=== PATIENT | female | born 1945 | race Native Hawaiian/Other Pacific Islander ===

== ENCOUNTER 2017-05-28 11:33 | Day surgery (SDC) | payer MEDICARE, MEDICAID ==
[~2017-05-28 11:33] MED LIST: CHONDR SU A NA/HYALUR INTRAOC KIT (SURGICARE) ONE; EPINEPHRINE INJ/PF 1 MG/1 ML AMPULE ONE; KETOROLAC TROMETHAMINE 0.45% 4 DROP/0.4 ML DROPERETTE OD PRN; LIDOCAINE 1% INJ-PF (10 MG/ML) 30 ML SDV ONE
[2017-05-28] MEDS: CYCLOPENTOLATE 0.2%/PHENYLEPHRINE 1% OPH SOLN 2 ML OD PRN ×3 (11:47→12:23)
[2017-05-28] MEDS: TROPICAMIDE 1% OPH SOLN 3 ML OD PRN ×3 (11:48→12:24)
[2017-05-28] MEDS: BESIFLOXACIN HCL 0.6% OPH SUSP 5 ML BOTTLE OD PRN ×3 (11:49→12:58)
[2017-05-28] MEDS: TETRACAINE HCL 0.5% OPH SOLN 2 ML OD PRN ×3 (11:51→12:26)
--- NOTE | 2017-05-28 20:04 | [facility] OPERATIVE REPORT E ---
[facility] Operative Report NAME: RACHEL AMAYA AGE: 71Y DATE OF SURGERY: 05/28/2017 ROOM: PREOPERATIVE DIAGNOSIS: CATARACT, RIGHT EYE. POSTOPERATIVE DIAGNOSIS: CATARACT, RIGHT EYE. OPERATION: Cataract extraction with intraocular lens implant of the right eye. SURGEON: TATO GONZALES M.D. ANESTHESIA: Topical. PROCEDURE: After obtaining appropriate consent, the patient's right eye was prepped and draped in sterile fashion as well as the surgeon in a sterile manner and cataract surgery was started. First a paracentesis blade was used to make a small side-port incision. Viscoelastic was used to inflate the anterior chamber. Next a 2.4 mm incision was made with the paracentesis blade. A continuous capsulorrhexis incision was made using a cystotome and Utrata forceps. Following this hydrodissection was carried out to make the lens fully loose and mobile and it was rotated 90 degrees. Following this, a yiuffx-pzk-jirllsk technique was used to phacoemulsify the lens with a CDE of 15.69. The remaining cortex was removed with irrigation/aspiration. Provisc was instilled into the capsular bag to inflate the bag. A SN60WF, 17.5 diopter lens was placed. The remaining viscoelastic material was removed with irrigation/aspiration. Following this, a 10-0 nylon suture was used to close the incision and it was found to be watertight. Vigamox was instilled in the eye and a protective shield was placed over the eye. The patient returned to the postoperative recovery in stable condition. DICTATING PHYSICIAN: TATO GONZALES M.D. [id number] PHY#: [id number] 1947 ID: [id number] JOB#: [id number] ACCT: [id number] cc:TATO GONZALES M.D. >
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
== END 2017-05-28 13:45 | disposition home or self-care (01) ==
LOC: SC 11:33
PROVIDERS: ATTEND Internal Medicine
PROC: 08RJ3JZ Replacement of Right Lens with Synthetic Substitute, Percutaneous Approach (ICD-10-PCS; principal; 2017-05-28 13:00)
DX: H25.89 Other age-related cataract (principal); I10 Essential (primary) hypertension; Z96.1 Presence of intraocular lens; H04.123 Dry eye syndrome of bilateral lacrimal glands; Z79.899 Other long term (current) drug therapy; Z91.040 Latex allergy status
CPT/HCPCS: 66984; V2632; J3490 ×2; A9270; J0171; 142

== ENCOUNTER 2020-03-05 14:21 | Emergency (ER) | payer MEDICAID, MEDICARE ==
[2020-03-05] MEDS ORDERED: ACETAMINOPHEN 325 MG TABLET PO ONE (14:35)
--- NOTE | 2020-03-05 14:35 | ER Document Report ---
ED General - General Chief Complaint: Fall Injury Stated Complaint: FALL/RIB PAIN Time Seen by Provider: 03/05/20 14:29 Primary Care Provider: STEFAN JORDAN MD [Primary Care Provider] - Follow up tomorrow KEVIN HERNADEZ MD [ACTIVE STAFF] - Follow up tomorrow (FOR GI FOLLOW UP) TRAVEL OUTSIDE OF THE [place] IN LAST 30 DAYS: No - HPI Notes: 74-year-old female to the emergency department with complaints of a fall that occurred today in her kitchen with low back pain and right-sided rib pain. She states that she slipped in her kitchen when she is moving around. She denies any loss of consciousness or hitting her head. She denies any nausea, vomiting, diarrhea. She states it hurts mainly across the upper right mid and lower back. Denies any bladder or bowel incontinence or saddle paresthesia. She denies any radiculopathy. - Related Data Allergies/Adverse Reactions: latex Allergy (Severe, Verified 05/18/17 10:57) Eczematous dermatitis Latex, Natural Rubber Allergy (Intermediate, Verified 05/18/17 10:57) Eczematous dermatitis Past Medical History - Social History Smoking Status: Never Smoker Frequency of alcohol use: None Drug Abuse: None Family History: Reviewed & Not Pertinent - Past Medical History Cardiac Medical History: Reports: Hx Hypertension Denies: Hx Heart Attack Pulmonary Medical History: Denies: Hx Asthma Neurological Medical History: Denies: Hx Cerebrovascular Accident, Hx Seizures GI Medical History: Denies: Hx Hepatitis, Hx Hiatal Hernia, Hx Ulcer Infectious Medical History: Denies: Hx Hepatitis Past Surgical History: Denies: Hx Hysterectomy, Hx Mastectomy, Hx Open Heart Surgery, Hx Pacemaker Physical Exam - Vital signs Vitals: Temp Pulse Resp BP Pulse Ox 98.8 F 73 20 165/84 H 98 03/05/20 14:28 03/05/20 14:28 03/05/20 14:28 03/05/20 14:28 03/05/20 14:28 Interpretation: Normal - General General appearance: Appears well, Alert In distress: None - HEENT Head: Normocephalic, Atraumatic Eyes: Normal Pupils: PERRL Neck: Normal, Supple - Respiratory Respiratory status: No respiratory distress Chest status: Nontender Breath sounds: Normal Chest palpation: Normal - Cardiovascular Rhythm: Regular Heart sounds: Normal auscultation Murmur: No - Abdominal Inspection: Normal Distension: No distension. No: Distended, Tympanitic, Fluid wave, Distended bladder Bowel sounds: Normal Tenderness: Tender - mild discomfort to the RUQ with no henderson's sign. Mild TTP over the right lower ribs.. No: McBurney's point, Henderson's sign Organomegaly: No organomegaly - Back Back: Normal, Tender - mild TTP over the lumbar midline spine. no step off or deformity. Patient ambulates with ease. no CVA tenderness. no TTP over the cervical and thoracic midline spine. - Neurological Neuro grossly intact: Yes Cognition: Normal Orientation: AAOx4 Gonzales Coma Scale Eye Opening: Spontaneous Gonzales Coma Scale Verbal: Oriented Marisol Coma Scale Motor: Obeys Commands Gonzales Coma Scale Total: 15 Speech: Normal Motor strength normal: LUE, RUE, LLE, RLE Sensory: Normal - Psychological Associated symptoms: Normal affect, Normal mood - Skin Skin Temperature: Warm Skin Moisture: Dry Skin Color: Normal Course - Re-evaluation Re-evalutation: 03/05/20 15:46 Noted x-rays with no acute fractures. Noted degenerative disc disease. Was reviewing this with her the patient and her friend who is with her. Her friend also reports that the patient has been complaining of off and on abdominal pain for the past 3 days. No nausea or vomiting. It is upper nature. She has no tenderness to palpation over the upper abdomen. Will obtain labs and a urinalysis to evaluate further. 03/05/20 16:59 Noted labs with concerning elevated liver enzymes, elevated bilirubin, will send for US of gallbladder. 03/05/20 20:54 Noted ultrasound result for cholelithiasis without any common bile duct dilation, pericholecystic fluid, gallbladder wall thickening, negative Henderson sign. Even in the setting of ultrasound reading her labs are concerning. Discussed the patient with my attending Dr. robertson and he suggested call surgeon buttonhole facer. I have gone over these results with the patient and she is fairly adamant that she does not want to stay for further evaluation and adm ittance. Spoke with Dr. Garcia, surgeon buttonhole facer. He is concerned about the patient's bilirubin in particular. He feels like she needs GI as well as an MRCP and possibly an ERCP we went over liver enzyme results as well as ultrasound results. He is pretty adamant that patient should have admission and further evaluation for GI. Went back and spoke with the patient and her familyher daughter and son were on the phonewe went over the situation at length. I explained to them the ultrasound results as well as the lab work again and advised that the patient would be best suited for admission but given that we do not have GI specialty on-call that she would need to be transferred. They requested that I check with [facility] or [place] to see if they have GI specialty. They do not want to be transferred to [facility]. Spoke with the transfer centers of both [facility] and [facility]. They do have GI specialist but do not have the capability for ERCP/MRCP. I went back and spoke with the patient and her family again. I offered them for me to call in transfer to [facility] once more. They declined her transfer because they do not want her to go to [place] or [place]. I advised that I cannot force the patient to be admitted or transferred but that not getting further care and management through admission could lead to worsening symptoms such as fever, worsening pain, worsening bilirubin elevation, cholecystitis, sepsis, choledocholithiasis, ascending cholangitis, hepatic encephalopathy, altered mental status, , prolonged hospitalization. The family and the patient still refused admission despite these risks reviewed with them. I spoke with my ER attending Dr. robertson once more. We will cover the patient with antibiotics and the patient would like to follow-up with her family with her primary care physician tomorrow and they would like information for outpatient GI. I will give Dr. Hernadez's information. I have advised the family and the patient that they may return at any time in the next 8 to 24 hours or even beyond that if the symptoms get worse. They voiced understanding and agree with the plan. We will have the patient sign AGAINST MEDICAL ADVICE form and let her go home. - Vital Signs Vital signs: Temp Pulse Resp BP Pulse Ox 98.2 F 63 16 173/91 H 100 03/05/20 20:52 03/05/20 20:52 03/05/20 20:52 03/05/20 20:52 03/05/20 20:52 - Laboratory Result Diagrams: 03/05/20 16:06 03/05/20 16:06 Laboratory results interpreted by me: 03/05/20 03/05/20 16:06 16:06 RBC 3.64 L Hct 35.2 L MCH 34.3 H Potassium 3.5 L Glucose 123 H Total Bilirubin 2.4 H Direct Bilirubin 1.2 H AST 91 H ALT 58 H Alkaline Phosphatase 323 H Total Protein 9.1 H - Diagnostic Test Radiology reviewed: Image reviewed, Reports reviewed Discharge - Discharge Clinical Impression: Rib pain on right side, Degenerative disc disease, lumbar, Right upper quadrant abdominal pain, Elevated liver enzymes, Total bilirubin, elevated Fall Qualifiers: Encounter type: initial encounter Qualified Code(s): W19.XXXA - Unspecified fall, initial encounter Low back strain Qualifiers: Encounter type: initial encounter Qualified Code(s): S39.012A - Strain of muscle, fascia and tendon of lower back, initial encounter Cholelithiasis Qualifiers: Cholelithiasis location: gallbladder Cholecystitis presence: without cholecystitis Biliary obstruction: without biliary obstruction Qualified Code(s ): K80.20 - Calculus of gallbladder without cholecystitis without obstruction Condition: Stable Disposition: AGAINST MEDICAL ADVICE Instructions: Low Back Pain ([facility]), Rib Contusion ([facility]) Additional Instructions: Take medicine as prescribed. Take antibiotics. Follow-up with GI and primary care physician without fail tomorrow. You may return at any time in the next 24 hours if your symptoms get worse to include fever, worsening abdominal pain, nausea vomiting that is intractable. Offered admission and transfer for further evaluation and management of your elevated liver enzymes, cholelithiasis, elevated bilirubin. You have elected not to utilize this option. This could ge t worse and end up with prolonged hospitalization, sepsis, infected gallbladder, hepatic failure, . We have discussed this with your family as well and you and your family have elected to try to follow-up outpatient. You may return at any time for further management. Prescriptions: Ciprofloxacin HCl [Cipro 500 mg Tablet] 500 mg PO BID #20 tablet Metronidazole [Flagyl 500 mg Tablet] 500 mg PO TID #30 tablet Methocarbamol [Robaxin 500 mg Tablet] 500 mg PO QID PRN #20 tablet PRN Reason: Ondansetron [Zofran Odt 4 mg Tablet] 1 - 2 tab PO Q4H PRN #15 tab.rapdis PRN Reason: For Nausea/Vomiting Referrals: STEFAN JORDAN MD [Primary Care Provider] - Follow up tomorrow KEVIN HERNADEZ MD [ACTIVE STAFF] - Follow up tomorrow (FOR GI FOLLOW UP)
--- NOTE | 2020-03-05 15:20 | RADIOLOGY REPORT (SQ) ---
EXAM DESCRIPTION: CHEST 2 VIEWS IMAGES COMPLETED DATE/TIME: 03/05/2020 3:06 pm REASON FOR STUDY: right rib pain, fall COMPARISON: None. EXAM PARAMETERS: NUMBER OF VIEWS: two views TECHNIQUE: Digital Frontal and Lateral radiographic views of the chest acquired. RADIATION DOSE: NA LIMITATIONS: none FINDINGS: LUNGS AND PLEURA: No opacities, masses or pneumothorax. No pleural effusion. MEDIASTINUM AND HILAR STRUCTURES: No masses or contour abnormalities. HEART AND VASCULAR STRUCTURES: Heart normal size. No evidence for failure. BONES: No displaced rib fractures are noted. HARDWARE: None in the chest. OTHER: No other significant finding. IMPRESSION: NO ACUTE RADIOGRAPHIC FINDING IN THE CHEST. TECHNICAL DOCUMENTATION: JOB ID: [id number] 2010 [employer]- All Rights Reserved Reading location - IP/workstation name: [email or web address]
--- NOTE | 2020-03-05 15:21 | RADIOLOGY REPORT (SQ) ---
EXAM DESCRIPTION: L SPINE WHOLE IMAGES COMPLETED DATE/TIME: 03/05/2020 3:06 pm REASON FOR STUDY: fall low back pain COMPARISON: None. NUMBER OF VIEWS: Five views including obliques. TECHNIQUE: AP, lateral, oblique, and sacral radiographic images acquired of the lumbar spine. LIMITATIONS: None. FINDINGS: MINERALIZATION: Normal. SEGMENTATION: Normal. No transitional anatomy. ALIGNMENT: Grade 1 anterolisthesis of L4 on L5. VERTEBRAE: Maintained height. No fracture or worrisome bone lesion. DISCS: Disc space narrowing at L4-L5 and L5-S1. POSTERIOR ELEMENTS: The set arthropathy at L4-L5 and L5-S1. HARDWARE: None in the spine. PARASPINAL SOFT TISSUES: Normal. PELVIS: Intact as visualized. No fractures or worrisome bone lesions. SI joints intact. OTHER: No other significant finding. IMPRESSION: Disc degenerative disease at L4-L5 and L5-S1 with grade 1 anterolisthesis of L4 on L5. No acute findings. TECHNICAL DOCUMENTATION: JOB ID: [id number] 2010 [facility]- All Rights Reserved Reading location - IP/workstation name: [email or web address]
[2020-03-05 16:21] LABS: ABSOLUTE EOSINOPHILS # (AUTO) 0.2 10^3/uL (0.0-0.6); ABSOLUTE LYMPHOCYTES (AUTO) 1.6 10^3/uL (0.5-4.7); ABSOLUTE MONOCYTES (AUTO) 0.4 10^3/uL (0.1-1.4); ABSOLUTE NEUT (AUTO) 2.4 10^3/uL (1.7-8.2); APPEARANCE,URINE CLEAR; BILIRUBIN,URINE NEGATIVE (NEGATIVE); COLOR,URINE YELLOW; EOSINOPHILS % (AUTO) 3.6 % (0-6); GLUCOSE, URINE NEGATIVE (NEGATIVE); HEMATOCRIT 35.2 % (36.0-47.0); HEMOGLOBIN 12.5 g/dL (12.0-15.5); KETONES,URINE NEGATIVE (NEGATIVE); LEUKOCYTE ESTERASE,URINE NEGATIVE (NEGATIVE); LYMPHOCYTES % (AUTO) 34.7 % (13-45); MEAN CORPUSCULAR HEMOGLOBIN 34.3 pg (27.0-33.4); MEAN CORPUSCULAR HGB CONC 35.5 g/dL (32.0-36.0); MEAN CORPUSCULAR VOLUME 97 fl (80-97); MONOCYTES % (AUTO) 9.5 % (3-13); NITRITE,URINE NEGATIVE (NEGATIVE); PLATELET COUNT 227 10^3/uL (150-450); PROTEIN,URINE NEGATIVE (NEGATIVE); RED BLOOD COUNT 3.64 10^6/uL (3.72-5.28); RED CELL DISTRIBUTION WIDTH 13.1 % (11.5-14.0); SEGMENTED NEUTROPHILS % (AUTO) 51.2 % (42-78); TOTAL CELLS COUNTED % (AUTO) 100 %; URINE SPECIFIC GRAVITY 1.003; UROBILINOGEN,URINE NEGATIVE mg/dL (<2.0); WHITE BLOOD COUNT 4.7 10^3/uL (4.0-10.5)
[2020-03-05 16:47] LABS: ALKALINE PHOSPHATASE 323 U/L (38-126); ANION GAP 9 (5-19); ASPARTATE AMINO TRANSFERASE 91 U/L (14-36); BILIRUBIN,DIRECT 1.2 mg/dL (0.0-0.4); BILIRUBIN,TOTAL 2.4 mg/dL (0.2-1.3); BLOOD UREA NITROGEN 9 mg/dL (7-20); CALCIUM 9.3 mg/dL (8.4-10.2); CARBON DIOXIDE 29 mmol/L (22-30); CHLORIDE 102 mmol/L (98-107); GLUCOSE 123 mg/dL (75-110); POTASSIUM 3.5 mmol/L (3.6-5.0); TOTAL PROTEIN 9.1 g/dL (6.3-8.2)
--- NOTE | 2020-03-05 19:31 | RADIOLOGY REPORT (SQ) ---
EXAM DESCRIPTION: U/S ABDOMEN LIMITED W/O DOP IMAGES COMPLETED DATE/TIME: 03/05/2020 7:21 pm REASON FOR STUDY: abnormal liver enzymes COMPARISON: None. TECHNIQUE: Dynamic and static grayscale images acquired of the abdomen and recorded on PACS. Additio rosibel selected color Doppler and spectral images recorded. LIMITATIONS: None. FINDINGS: PANCREAS: No masses. Visualized pancreatic duct normal caliber. LIVER: Coarsened, heterogeneous echotexture without focal mass lesion. LIVER VASCULATURE: Normal directional flow of the main portal vein and hepatic veins. GALLBLADDER: Gallstone(s). No pericholecystic fluid. No wall thickening. ULTRASOUND-DETECTED DIGGS'S SIGN: Negative. INTRAHEPATIC DUCTS AND COMMON DUCT: CBD and intrahepatic ducts normal caliber. No filling defects. INFERIOR VENA CAVA: Normal flow. AORTA: No aneurysm. RIGHT KIDNEY: Normal size. Normal echogenicity. No solid or suspicious masses. No hydronephrosis. No calcifications. PERITONEAL AND RIGHT PLEURAL SPACE: No ascites or effusions. OTHER: No other significant findings. IMPRESSION: Cholelithiasis without evidence of cholecystitis. Coarsened, heterogeneous echotexture of the liver may represent an element of geographic hepatic steatosis. TECHNICAL DOCUMENTATION: JOB ID: [id number] 2010 [employer]- All Rights Reserved Reading location - IP/workstation name: [email or web address]
[2020-03-05 20:53] VITALS: BP 173/91
== END 2020-03-05 20:57 | disposition left against medical advice (07) ==
LOC: ER 14:21
DX: S39.012A Strain of muscle, fascia and tendon of lower back, initial encounter (principal); K80.20 Calculus of gallbladder without cholecystitis without obstruction; R07.81 Pleurodynia; R10.11 Right upper quadrant pain; M51.36 Other intervertebral disc degeneration, lumbar region; R74.8 Abnormal levels of other serum enzymes; E80.6 Other disorders of bilirubin metabolism; W01.0XXA Fall on same level from slipping, tripping and stumbling without subsequent striking against object, initial encounter; Y92.000 Kitchen of unspecified non-institutional (private) residence as the place of occurrence of the external cause; I10 Essential (primary) hypertension; Z91.040 Latex allergy status
CPT/HCPCS: 99285; 36415; 83690; 85025; 80053; 81001; 71046; 72110; 76705; A9270

== ENCOUNTER 2020-03-14 16:01 | Inpatient (IN) | payer MEDICARE, MEDICAID ==
[2020-03-14] MEDS ORDERED: NORMAL SALINE 1000 ML 1,000 ML IV ONE (16:59)
--- NOTE | 2020-03-14 17:02 | ER Document Report ---
ED Medical Screen (RME) - General Chief Complaint: Abdominal Pain Stated Complaint: ABDOMINAL PAIN Time Seen by Provider: 03/14/20 16:57 Primary Care Provider: STEFAN JORDAN MD [Primary Care Provider] - Follow up as needed Mode of Arrival: Ambulatory Information source: Patient Notes: 74-year-old female presented to ED for right upper quadrant abdominal pain. Th ey went to her doctor Shira. He told him to come to the emergency room and get blood and get admitted for cholecystectomy in the morning. He states he did call over to the hospital to give orders. I do not have the results here but have ordered basic orders until she gets to the back. Patient is alert oriented respirations regular nonlabored speaking in full sentences. She is here with her son-in-law at this time. I have greeted and performed a rapid initial assessment of this patient. A comprehensive ED assessment and evaluation of the patient, analysis of test results and completion of medical decision making process will be conducted by an additional ED providers. TRAVEL OUTSIDE OF THE [place] IN LAST 30 DAYS: No - Related Data Allergies/Adverse Reactions: latex Allergy (Severe, Verified 05/18/17 10:57) Eczematous dermatitis Latex, Natural Rubber Allergy (Intermediate, Verified 05/18/17 10:57) Eczematous dermatitis Past Medical History - Past Medical History Cardiac Medical History: Reports: Hx Hypertension Denies: Hx Heart Attack Pulmonary Medical History: Denies: Hx Asthma Neurological Medical History: Denies: Hx Cerebrovascular Accident, Hx Seizures GI Medical History: Denies: Hx Hepatitis, Hx Hiatal Hernia, Hx Ulcer Infectious Medical History: Denies: Hx Hepatitis Past Surgical History: Denies: Hx Hysterectomy, Hx Mastectomy, Hx Open Heart Surgery, Hx Pacemaker Physical Exam - Vital signs Vitals: Temp Pulse Resp BP Pulse Ox 98.5 F 69 18 151/106 H 98 03/14/20 16:16 03/14/20 16:16 03/14/20 16:16 03/14/20 16:16 03/14/20 16:16 Course - Vital Signs Vital signs: Temp Pulse Resp BP Pulse Ox 98.5 F 69 18 151/106 H 98 03/14/20 16:16 03/14/20 16:16 03/14/20 16:16 03/14/20 16:16 03/14/20 16:16 Doctor's Discharge - Discharge Referrals: STEFAN JORDAN MD [Primary Care Provider] - Follow up as needed
[2020-03-14 17:37] LABS: ABSOLUTE BASOPHILS # (AUTO) 0.1 10^3/uL (0.0-0.2); ABSOLUTE EOSINOPHILS # (AUTO) 0.2 10^3/uL (0.0-0.6); ABSOLUTE LYMPHOCYTES (AUTO) 1.2 10^3/uL (0.5-4.7); ABSOLUTE MONOCYTES (AUTO) 0.5 10^3/uL (0.1-1.4); ABSOLUTE NEUT (AUTO) 2.2 10^3/uL (1.7-8.2); BASOPHILS % (AUTO) 1.4 % (0-2); EOSINOPHILS % (AUTO) 4.5 % (0-6); HEMATOCRIT 35.8 % (36.0-47.0); HEMOGLOBIN 12.7 g/dL (12.0-15.5); LYMPHOCYTES % (AUTO) 29.3 % (13-45); MEAN CORPUSCULAR HEMOGLOBIN 34.6 pg (27.0-33.4); MEAN CORPUSCULAR HGB CONC 35.5 g/dL (32.0-36.0); MEAN CORPUSCULAR VOLUME 97 fl (80-97); MONOCYTES % (AUTO) 11.6 % (3-13); PLATELET COUNT 219 10^3/uL (150-450); RED BLOOD COUNT 3.67 10^6/uL (3.72-5.28); RED CELL DISTRIBUTION WIDTH 13.4 % (11.5-14.0); SEGMENTED NEUTROPHILS % (AUTO) 53.2 % (42-78); TOTAL CELLS COUNTED % (AUTO) 100 %
[2020-03-14 17:42] LABS: APPEARANCE,URINE CLEAR; BILIRUBIN,URINE NEGATIVE (NEGATIVE); COLOR,URINE YELLOW; GLUCOSE, URINE NEGATIVE (NEGATIVE); KETONES,URINE NEGATIVE (NEGATIVE); LEUKOCYTE ESTERASE,URINE TRACE (NEGATIVE); NITRITE,URINE NEGATIVE (NEGATIVE); PROTEIN,URINE NEGATIVE (NEGATIVE); URINE SPECIFIC GRAVITY 1.003; UROBILINOGEN,URINE NEGATIVE mg/dL (<2.0)
--- NOTE | 2020-03-14 17:57 | RADIOLOGY REPORT (SQ) ---
EXAM DESCRIPTION: U/S ABDOMEN LIMITED W/O DOP IMAGES COMPLETED DATE/TIME: 03/14/2020 5:45 pm REASON FOR STUDY: gallstones prep for surgery COMPARISON: 03/05/2020 TECHNIQUE: Dynamic and static grayscale images acquired of the abdomen and recorded on PACS. Sabas gleason selected color Doppler and spectral images recorded. LIMITATIONS: None. FINDINGS: PANCREAS: No masses. Visualized pancreatic duct normal caliber. LIVER: Heterogeneous echotexture without focal mass lesion. Normal size. No intrahepatic biliary di latation. LIVER VASCULATURE: Normal directional flow of the main portal vein and hepatic veins. GALLBLADDER: Gallstone(s). No pericholecystic fluid. No wall thickening. ULTRASOUND-DETECTED DIGGS'S SIGN: Negative. INTRAHEPATIC DUCTS AND COMMON DUCT: CBD and intrahepatic ducts normal caliber. No filling defects. INFERIOR VENA CAVA: Normal flow. AORTA: No aneurysm. RIGHT KIDNEY: Normal size. Normal echogenicity. No solid or suspicious masses. No hydronephrosis. No calcifications. PERITONEAL AND RIGHT PLEURAL SPACE: No ascites or effusions. OTHER: No other significant findings. IMPRESSION: Cholelithiasis without evidence of cholecystitis. Heterogeneous echotexture may represe nt cirrhotic change versus geographic hepatic steatosis. TECHNICAL DOCUMENTATION: JOB ID: [id number] 2010 [employer]- All Rights Reserved Reading location - IP/workstation name: [email or web address]
[2020-03-14 18:02] LABS: ALBUMIN 4.1 g/dL (3.5-5.0); ALKALINE PHOSPHATASE 314 U/L (38-126); ANION GAP 8 (5-19); ASPARTATE AMINO TRANSFERASE 122 U/L (14-36); BILIRUBIN,DIRECT 1.5 mg/dL (0.0-0.4); BILIRUBIN,TOTAL 2.3 mg/dL (0.2-1.3); BLOOD UREA NITROGEN 4 mg/dL (7-20); CALCIUM 9.4 mg/dL (8.4-10.2); CARBON DIOXIDE 28 mmol/L (22-30); CHLORIDE 104 mmol/L (98-107); GLUCOSE 116 mg/dL (75-110); POTASSIUM 3.4 mmol/L (3.6-5.0); TOTAL PROTEIN 9.4 g/dL (6.3-8.2)
--- NOTE | 2020-03-14 18:48 | ER Document Report ---
ED General - General Chief Complaint: Abdominal Pain Stated Complaint: ABDOMINAL PAIN Time Seen by Provider: 03/14/20 16:57 Primary Care Provider: STEFAN JORDAN MD [Primary Care Provider] - Follow up as needed Mode of Arrival: Ambulatory TRAVEL OUTSIDE OF THE [place] IN LAST 30 DAYS: No - HPI Notes: 74-year-old female presents with right upper quadrant abdominal pain, ongoing for the past 10 days, associated with eating, has had some weight loss. She has noted some yellowing of her skin. Does not really give descriptor of the pain, shakes her hand [id number]. She denies any pain now. She saw her GI doctor in clinic, the plan is for her to be admitted and to have ERCP tomorrow. - Related Data Allergies/Adverse Reactions: latex Allergy (Severe, Verified 05/18/17 10:57) Eczematous dermatitis Latex, Natural Rubber Allergy (Intermediate, Verified 05/18/17 10:57) Eczematous dermatitis Past Medical History - General Information source: Patient - Social History Smoking Status: Unknown if Ever Smoked Family History: Reviewed & Not Pertinent - Past Medical History Cardiac Medical History: Reports: Hx Hypertension Denies: Hx Heart Attack Pulmonary Medical History: Denies: Hx Asthma Neurological Medical History: Denies: Hx Cerebrovascular Accident, Hx Seizures GI Medical History: Denies: Hx Hepatitis, Hx Hiatal Hernia, Hx Ulcer Infectious Medical History: Denies: Hx Hepatitis Past Surgical History: Denies: Hx Hysterectomy, Hx Mastectomy, Hx Open Heart Surgery, Hx Pacemaker Review of Systems - Review of Systems Constitutional: denies: Fever EENT: No symptoms reported Cardiovascular: No symptoms reported Respiratory: No symptoms reported Gastrointestinal: Abdominal pain, Poor appetite Genitourinary: No symptoms reported Female Genitourinary: No symptoms reported Musculoskeletal: No symptoms reported Skin: Change in color Neurological/Psychological: No symptoms reported Physical Exam - Vital signs Vitals: Temp Pulse Resp BP Pulse Ox 98.5 F 69 18 151/106 H 98 03/14/20 16:16 03/14/20 16:16 03/14/20 16:16 03/14/20 16:16 03/14/20 16:16 - General General appearance: Appears well, Alert In distress: None - HEENT Head: Normocephalic, Atraumatic Eyes: Scleral icterus Extraocular movements intact: Yes Pupils: PERRL - Respiratory Breath sounds: Normal - Cardiovascular Rhythm: Regular Heart sounds: Normal auscultation - Abdominal Distension: No distension Bowel sounds: Normal Tenderness: Nontender - Extremities General upper extremity: Normal ROM General lower extremity: Normal ROM - Neurological Neuro grossly intact: Yes Cognition: Normal Orientation: AAOx4 - Psychological Associated symptoms: Normal affect - Skin Skin Temperature: Warm Course - Re-evaluation Re-evalutation: 20-year-old female with right of quadrant pain since doing the eating ongoing for the past 10 days. On exam she is well-appearing, nontoxic, no focal abdominal tenderness on exam. She has very faint yellowing to her sclera. Vitals are stable. As part of the triage process she had an ultrasound done which shows cholelithiasis. There is concern for choledocholithiasis for which her GI doctor plans ERCP tomorrow, will touch base to confirm. She has had labs done as well. She has no leukocytosis. She has a mild elevation of T bili and LFTs. 03/14/20 19:[address] Silva, the plan is to ERCP her tomorrow. 03/14/20 20:14 Patient to be admitted to hospital service. A rapid COVID test has been ordered for preop, clinically do not dissipate patient - Vital Signs Vital signs: Temp Pulse Resp BP Pulse Ox 98.5 F 69 18 151/106 H 98 03/14/20 16:16 03/14/20 16:16 03/14/20 16:16 03/14/20 16:16 03/14/20 16:16 - Laboratory Result Diagrams: 03/14/20 17:10 03/14/20 17:10 Laboratory results interpreted by me: 03/14/20 03/14/20 03/14/20 17:10 17:10 17:10 RBC 3.67 L Hct 35.8 L MCH 34.6 H Potassium 3.4 L BUN 4 L Glucose 116 H Total Bilirubin 2.3 H Direct Bilirubin 1.5 H AST 122 H ALT 58 H Alkaline Phosphatase 314 H Total Protein 9.4 H Ur Leukocyte Esterase TRACE H - Diagnostic Test Radiology reviewed: Image reviewed, Reports reviewed Discharge - Discharge Clinical Impression: Abnormal liver function, Gallstones, Jaundice, Right upper quadrant pain Disposition: ADMITTED INPATIENT Admitting Provider: Dieter (Hospitalist) Unit Admitted: Medical Floor Referrals: STEFAN JORDAN MD [Primary Care Provider] - Follow up as needed
[2020-03-14 19:21] LABS: INTERNATIONAL RATION (INR) 1.04; PROTHROMBIN TIME 13.8 SEC (11.4-15.4)
[2020-03-14 19:22] LABS: PARTIAL THROMBOPLASTIN TIME 30.3 SEC (23.5-35.8)
--- NOTE | 2020-03-14 19:32 | PDOC CONSULTATION ---
Consultation Consult Date: 03/14/20 Provider Consulted: KEVIN HERNADEZ History of Present Illness Admission Date/PCP: STEFAN JORDAN MD History of Present Illness: RACHEL AMAYA is a 74 year old female patient who was seen in my office today and referred to the emergency room for possible choledocholithiasis and/or cholecystitis. She has been having recurrent right upper quadrant pain for the last 2 weeks associated with nausea but no vomiting. Pain is sometimes postprandial and it happens multiple times during the day lasting minutes or up to an hour. She was seen at the emergency room on 03/05/2020 when her LFTs were abnormal and the ultrasound did show gallstones. She has lost about 6 pounds over the last 2 weeks. She has no previous history of liver disease. Past Medical History Cardiac Medical History: Reports: Hypertension Denies: Myocardial Infarction Pulmonary Medical History: Denies: Asthma Neurological Medical History: Denies: Seizures GI Medical History: Denies: Hepatitis, Hiatal Hernia Hematology: Denies: Anemia, Sickle Cell Disease Past Surgical History Past Surgical History: Denies: Amputation, Hysterectomy, Mastectomy, Pacemaker Social History Smoking Status: Unknown if Ever Smoked Family History Family History: Reviewed & Not Pertinent Parental Family History Reviewed: No Children Family History Reviewed: NA Sibling(s) Family History Reviewed.: NA Medication/Allergy Home Medications: Amlodipine/Valsartan [Exforge 5-160 mg Tablet] 1 tab PO DAILY 12/21/15 Besifloxacin HCl [Besivance 0.6% Oph Susp 5 ml] 1 drop OP ASDIR PRN 12/21/15 Difluprednate [Durezol] 5 ml OP ASDIR PRN 12/21/15 Nepafenac [Ilevro] 1.7 ml OP DAILY 12/21/15 Ciprofloxacin HCl [Cipro 500 mg Tablet] 500 mg PO BID #20 tablet 03/05/20 Methocarbamol [Robaxin 500 mg Tablet] 500 mg PO QID PRN #20 tablet 03/05/20 Metronidazole [Flagyl 500 mg Tablet] 500 mg PO TID #30 tablet 03/05/20 Ondansetron [Zofran Odt 4 mg Tablet] 1 - 2 tab PO Q4H PRN #15 tab.rapdis 03/05/20 Allergies/Adverse Reactions: latex Allergy (Severe, Verified 05/18/17 10:57) Eczematous dermatitis Latex, Natural Rubber Allergy (Intermediate, Verified 05/18/17 10:57) Eczematous dermatitis Review of Systems All systems: reviewed and no additional remarkable complaints except as stated Physical Exam Vital Signs: Temp Pulse Resp BP Pulse Ox 98.5 F 69 18 151/106 H 98 03/14/20 16:16 03/14/20 16:16 03/14/20 16:16 03/14/20 16:16 03/14/20 16:16 Intake & Output 03/13/20 03/14/20 03/15/20 06:59 06:59 06:59 Weight 54.3 kg Exam: General: Patient is alert and appears to be uncomfortable HEENT: There is no pallor but she is jaundiced. PERRLA. Oropharynx normal Respiratory: No chest deformity. No respiratory distress. Chest wall palpitation was unremarkable. Breath sounds were normal Cardiovascular: Heart sounds 1 and 2 normal with no murmurs. Abdominal: Not distended. Soft with mild tenderness in the epigastrium. Liver and spleen not palpable. No ascites demonstrated. Bowel sounds active. Rectal examination was deferred. Extremities: No edema Neurological: Alert and oriented x4. Grossly nonfocal. Normal speech Skin: No significant rash Psychological: Normal affect Results Laboratory Results: 03/14/20 17:10 03/14/20 17:10 03/14/20 03/14/20 03/14/20 17:10 17:10 17:10 WBC 4.0 RBC 3.67 L Hgb 12.7 Hct 35.8 L MCV 97 MCH 34.6 H MCHC 35.5 RDW 13.4 Plt Count 219 Seg Neutrophils % 53.2 Sodium 140.4 Potassium 3.4 L Chloride 104 Carbon Dioxide 28 Anion Gap 8 BUN 4 L Creatinine 0.73 Est GFR ( Amer) > 60 Glucose 116 H Calcium 9.4 Total Bilirubin 2.3 H AST 122 H Alkaline Phosphatase 314 H Total Protein 9.4 H Albumin 4.1 Lipase 212.7 Urine Color YELLOW Urine Appearance CLEAR Urine pH 6.0 Ur Specific [place] 1.003 Urine Protein NEGATIVE Urine Glucose (UA) NEGATIVE Urine Ketones NEGATIVE Urine Blood NEGATIVE Urine Nitrite NEGATIVE Ur Leukocyte Esterase TRACE H Urine WBC (Auto) 0 Impressions: Abdomen Ultrasound 03/14/20 16:57 IMPRESSION: Cholelithiasis without evidence of cholecystitis. Heterogeneous echotexture may represent cirrhotic change versus geographic hepatic steatosis. Assessment & Plan - Diagnosis (1) Right upper quadrant pain Is this a current diagnosis for this admission?: Yes Plan: Her recurrent postprandial abdominal pain, jaundice and gallstones is suggestive of choledocholithiasis. Her ultrasound today did not show dilated biliary tree and there was no cholecystitis on ultrasound. Her white count is normal. The need for an ERCP including the risk and benefit was explained to the patient and her son-in-law. She will need cholecystectomy at some point (2) Jaundice Is this a current diagnosis for this admission?: Yes (3) Abnormal liver function Is this a current diagnosis for this admission?: Yes (4) Choledocholithiasis Is this a current diagnosis for this admission?: Yes (5) Gallstones Is this a current diagnosis for this admission?: Yes
[2020-03-14] MEDS ORDERED: ONDANSETRON HCL INJ/PF 4 MG/2 ML SDV IV PRN (21:19)
[2020-03-14] MEDS ORDERED: HYDRALAZINE HCL INJ/PF 20 MG/1 ML SDV IV PRN (21:23)
[2020-03-14] MEDS ORDERED: METOPROLOL TARTRATE PF/INJ 5 MG/5 ML SDV IV PRN (21:23)
[2020-03-14] MEDS ORDERED: ACETAMINOPHEN 650 MG SUPP.RECT PR PRN (21:23)
[2020-03-14] MEDS ORDERED: LORAZEPAM INJ 2 MG/1 ML VIAL IV PRN (21:23)
[2020-03-14] MEDS ORDERED: MORPHINE SULFATE 10 MG/ML INJ IV PRN ×4 (21:23→21:29)
[2020-03-14] MEDS: DEXTROSE 5%-LACTATED RINGERS 1,000 ML IV PRN (22:24)
[2020-03-14] MEDS: FAMOTIDINE INJ/PF 20 MG/2 ML SDV IV SCH (22:24)
[2020-03-14] MEDS: HEPARIN SOD (PORCINE) 5,000 UNIT/ML 1 ML VIAL SUBCUT SCH (22:31)
--- NOTE | 2020-03-15 01:35 | PDOC H&P ---
History of Present Illness Admission Date/PCP: 03/14/20 20:29 STEFAN JORDAN MD Patient complains of: Abdominal pain History of Present Illness: RACHEL AMAYA is a 74 year old female who presented to the emergency room from Dr. Silva's office today with a two-week history of abdominal pain. She admits intermittent episodes of moderate to severe colicky right upper quadrant abdominal pain without radiation, lasting for 15 minutes to an hour, accompanied by nausea without vomiting and mild jaundice, and associated a 6 pound weight loss. She admits to multiple episodes daily over the last 2 weeks always occurring within an hour after eating. She denies other associated or acco mpanying signs and symptoms. She denies prior similar episodes. She has not identified any additional aggravating or ameliorating factors for her abdominal pain. Patient is currently symptom-free. On 03/05/2020 she was found to have elevated liver function tests and an ultrasound showing gallstones. Dr. Silva plans an ERCP for the morning and asked that the hospitalist service admit the patient. Patient was subsequently admitted to the medical service. Past Medical History Cardiac Medical History: Reports: Hypertension Denies: Atrial Fibrillation, Coronary Artery Disease, DVT, Myocardial Infarction, Pulmonary Embolism Pulmonary Medical History: Denies: Asthma, Chronic Obstructive Pulmonary Disease (COPD), Sleep Apnea EENT Medical History: Reports: Cataracts, Eyes - Chronic dry eye syndrome, b ilateral Denies: Ears - Hearing aids Neurological Medical History: Denies: Hemorrhagic CVA, Ischemic CVA, Seizures Endocrine Medical History: Denies: Diabetes Mellitus Type 1, Diabetes Mellitus Type 2, Hyperthyroidism, Hypothyroidism, Obesity Renal/ Medical History: Denies: Chronic Kidney Disease, Nephrolithiasis Malignancy Medical History: Reports: None GI Medical History: Denies: Cirrhosis, Crohn's Disease, Gastroesophageal Reflux Disease, Hepatitis, Hiatal Hernia, Peptic Ulcer Disease, Ulcerative Colitis Musculoskeltal Medical History: Denies: Fibromyalgia, Gout Skin Medical History: Denies: Eczema, Psoriasis Psychiatric Medical History: Denies: Alcohol Dependency, Substance Abuse, Tobacco Dependency Traumatic Medical History: Reports: None Hematology: Denies: Anemia, Bleeding Tendencies Infectious Medical History: Reports: None Past Surgical History Past Surgical History: Reports: Other - Bilateral cataract surgery Social History Information Source: Patient Lives with: Alone Smoking Status: Former Smoker Electronic Cigarette use?: No Frequency of Alcohol Use: None Hx Recreational Drug Use: No Drugs: None Hx Prescription Drug Abuse: No - Advance Directive Resuscitation Status: Full Code Surrogate healthcare decision maker:: Que Marti Family History Family History: DM, Other - Cataract Parental Family History Reviewed: Yes Children Family History Reviewed: Yes Sibling(s) Family History Reviewed.: Yes Medication/Allergy Home Medications: Ciprofloxacin HCl [Cipro 500 mg Tablet] 500 mg PO BID #20 tablet 03/05/20 Metronidazole [Flagyl 500 mg Tablet] 500 mg PO TID #30 tablet 03/05/20 Methocarbamol [Robaxin 500 mg Tablet] 500 mg PO QID PRN 03/14/20 Multivit-Minerals/Folic Acid [Women's Multivitamin Gummies] 200 mcg PO DAILY 03/14/20 Ondansetron [Zofran Odt 4 mg Tablet] 4 mg PO Q4HP PRN 03/14/20 Valsartan [Diovan 80 mg Tablet] 80 mg PO QPM 03/14/20 Allergies/Adverse Reactions: latex Allergy (Severe, Verified 05/18/17 10:57) Eczematous dermatitis Latex, Natural Rubber Allergy (Intermediate, Verified 05/18/17 10:57) Eczematous dermatitis Review of Systems Constitutional: ABSENT: chills, fever(s) Eyes: ABSENT: visual disturbances, other - Eye pain Ears: ABSENT: hearing changes, other - Ear pain Nose, Mouth, and Throat: ABSENT: headache(s), sore throat Cardiovascular: ABSENT: chest pain, palpitations Respiratory: ABSENT: cough, dyspnea Gastrointestinal: PRESENT: as per HPI, abdominal pain, nausea. ABSENT: constipation, diarrhea, vomiting Genitourinary: ABSENT: dysuria, hematuria Musculoskeletal: ABSENT: joint swelling, muscle weakness Integumentary: ABSENT: pruritus, rash Neurological: ABSENT: confusion, convulsions, focal weakness, memory loss, syncope Psychiatric: ABSENT: anxiety, depression Endocrine: ABSENT: cold intolerance, heat intolerance Hematologic/Lymphatic: ABSENT: easy bleeding, easy bruising Allergic/Immunologic: ABSENT: seasonal rhinorrhea Physical Exam Vital Signs: Temp Pulse Resp BP Pulse Ox 98.5 F 69 18 151/106 H 98 03/14/20 16:16 03/14/20 16:16 03/14/20 16:16 03/14/20 16:16 03/14/20 16:16 Intake & Output 03/12/20 03/13/20 03/14/20 23:59 23:59 23:59 Weight 54.885 kg General appearance: PRESENT: no acute distress, cooperative Head exam: PRESENT: atraumatic, normocephalic Eye exam: PRESENT: conjunctiva pink, scleral icterus - Minimal bilateral scleral icterus. ABSENT: conjunctival injection Ear exam: PRESENT: normal external ear exam. ABSENT: bleeding, drainage Mouth exam: PRESENT: neck supple. ABSENT: dry mucosa, laceration Neck exam: ABSENT: thyromegaly, tracheal deviation Respiratory exam: PRESENT: clear to auscultation ankur, symmetrical, unlabored Cardiovascular exam: PRESENT: RRR. ABSENT: clicks, gallop, rubs Pulses: PRESENT: normal radial pulses, normal dorsalis pedis pul Vascular exam: PRESENT: normal capillary refill. ABSENT: pallor GI/Abdominal exam: PRESENT: normal bowel sounds, soft. ABSENT: tenderness Rectal exam: PRESENT: deferred Extremities exam: ABSENT: joint swelling, pedal edema Musculoskeletal exam: ABSENT: deformity, dislocation Neurological exam: PRESENT: alert, oriented to person, oriented to place, oriented to time, oriented to situation, CN II-XII grossly intact. ABSENT: motor sensory deficit Psychiatric exam: PRESENT: appropriate affect, normal mood Skin exam: PRESENT: dry, intact, jaundice - Minimal scleral and sublingual jaundice, warm. ABSENT: rash, urticaria Results Laboratory Results: 03/14/20 17:10 03/14/20 17:10 03/14/20 03/14/20 03/14/20 17:10 17:10 17:10 WBC 4.0 RBC 3.67 L Hgb 12.7 Hct 35.8 L MCV 97 MCH 34.6 H MCHC 35.5 RDW 13.4 Plt Count 219 Seg Neutrophils % 53.2 Sodium 140.4 Potassium 3.4 L Chloride 104 Carbon Dioxide 28 Anion Gap 8 BUN 4 L Creatinine 0.73 Est GFR ( Amer) > 60 Glucose 116 H Calcium 9.4 Total Bilirubin 2.3 H AST 122 H Alkaline Phosphatase 314 H Total Protein 9.4 H Albumin 4.1 Lipase 212.7 Urine Color YELLOW Urine Appearance CLEAR Urine pH 6.0 Ur Specific [place] 1.003 Urine Protein NEGATIVE Urine Glucose (UA) NEGATIVE Urine Ketones NEGATIVE Urine Blood NEGATIVE Urine Nitrite NEGATIVE Ur Leukocyte Esterase TRACE H Urine WBC (Auto) 0 Impressions: Abdomen Ultrasound 03/14/20 16:57 IMPRESSION: Cholelithiasis without evidence of cholecystitis. Heterogeneous echotexture may represent cirrhotic change versus geographic hepatic steatosis. Assessment and Plan - Diagnosis (1) Intermittent right upper quadrant abdominal pain Is this a current diagnosis for this admission?: Yes (2) Jaundice Is this a current diagnosis for this admission?: Yes (3) Abnormal liver function Is this a current diagnosis for this admission?: Yes (4) Choledocholithiasis Is this a current diagnosis for this admission?: Yes (5) Hypertension Qualifiers: Hypertension type: essential hypertension Qualified Code(s): I10 - Essential (primary) hypertension Is this a current diagnosis for this admission?: Yes (6) Chronic dryness of both eyes Is this a current diagnosis for this admission?: Yes - Plan Summary Summary: Patient is admitted to the medical floor where she will receive routine supportive and symptomatic cares. Dr. Silva will be consulted for his planned ERCP in the morning. Patient received morphine sulfate 2 to 4 mg IV every 2 hours as needed for pain. She will receive Ativan 1 mg IV every 4 hours as needed for anxiety or restlessness. She will be n.p.o. after midnight. She will receive IV fluids utilizing D5 LR at 125 mL/h. She will receive Zofran 4 mg IV every 4 hours as needed for nausea. CBCs metabolic profiles and additional laboratory and/or radiographic evaluations will be obtained as needed. Patient's usual home medications will be continued, as appropriate, when her medication list has been verified and reconciled. - Time Time Spent with patient: Less than 15 minutes Medications reviewed and adjusted accordingly: Yes Anticipated Discharge Disposition: Home, Self Care Anticipated Discharge Timeframe: within 72 hours - Inpatient Certification Based on my medical assessment, after consideration of the patient's comorbidities, presenting symptoms, or acuity I expect that the services needed warrant INPATIENT care.: Yes I certify that my determination is in accordance with my understanding of Medicare's requirements for reasonable and necessary INPATIENT services [42 CFR 412.3e].: Yes Medical Necessity: Need Close Monitoring Due to Risk of Patient Decompensation, Need For IV Fluids, Need for Pain Control, Need for Surgery, Risk of Diagnosis Which Will Require Inpatient Eval/Care/Monitoring
[2020-03-15] MEDS: HEPARIN SOD (PORCINE) 5,000 UNIT/ML 1 ML VIAL SUBCUT SCH ×3 (05:16→22:45)
[2020-03-15] MEDS: DEXTROSE 5%-LACTATED RINGERS 1,000 ML IV PRN ×3 (05:54→22:47)
[2020-03-15 07:08] LABS: HEMATOCRIT 32.5 % (36.0-47.0); HEMOGLOBIN 11.2 g/dL (12.0-15.5); MEAN CORPUSCULAR HEMOGLOBIN 33.7 pg (27.0-33.4); MEAN CORPUSCULAR HGB CONC 34.4 g/dL (32.0-36.0); MEAN CORPUSCULAR VOLUME 98 fl (80-97); PLATELET COUNT 190 10^3/uL (150-450); RED BLOOD COUNT 3.31 10^6/uL (3.72-5.28); RED CELL DISTRIBUTION WIDTH 13.3 % (11.5-14.0); WHITE BLOOD COUNT 4.4 10^3/uL (4.0-10.5)
[2020-03-15 07:33] LABS: ALBUMIN 3.2 g/dL (3.5-5.0); ALKALINE PHOSPHATASE 233 U/L (38-126); AMYLASE 73 U/L (30-110); ANION GAP 7 (5-19); ASPARTATE AMINO TRANSFERASE 120 U/L (14-36); BILIRUBIN,DIRECT 1.2 mg/dL (0.0-0.4); BILIRUBIN,TOTAL 1.7 mg/dL (0.2-1.3); BLOOD UREA NITROGEN 7 mg/dL (7-20); CALCIUM 8.6 mg/dL (8.4-10.2); CARBON DIOXIDE 28 mmol/L (22-30); CHLORIDE 106 mmol/L (98-107); GLUCOSE 170 mg/dL (75-110); POTASSIUM 3.4 mmol/L (3.6-5.0); TOTAL PROTEIN 7.6 g/dL (6.3-8.2)
[2020-03-15] MEDS: FAMOTIDINE INJ/PF 20 MG/2 ML SDV IV SCH ×2 (10:05→22:46)
[2020-03-15] MEDS: MORPHINE SULFATE 10 MG/ML INJ IV PRN ×2 (10:23→22:45)
[2020-03-15] MEDS ORDERED: ONDANSETRON HCL INJ/PF 4 MG/2 ML SDV IV PRN (15:30)
--- NOTE | 2020-03-15 16:59 | PDOC PROGRESS REPORT ---
Subjective Progress Note for:: 03/15/20 Subjective:: The patient is a 74 year old female with a past medical history significant for HTN and chronic dry eye who was admitted 03/14/20 for choledocholithiasis with plans for ERCP by Dr. Silva on 03/15/20. Patient was seen on morning rounds. She was seen on morning rounds. She was found resting in bed, comfortably, on room air. She complains of abdominal discomfort, but asks for decreased pain medications. She denies fever, chills, chest pain, palpitations, dyspnea, orthopnea, and cough. Does report intermittent nausea without emesis at this time. She has no questions or concerns at this time. No concerns per nursing. Reason For Visit: INTERMITTENT RIGHT UPPER QUADRANT ABDOMINAL PAIN Physical Exam Vital Signs: Temp Pulse Resp BP Pulse Ox 98.2 F 61 16 142/75 H 100 03/15/20 11:06 03/15/20 11:06 03/15/20 11:06 03/15/20 11:06 03/15/20 11:06 Intake & Output 03/14/20 03/15/20 03/16/20 06:59 06:59 06:59 Intake Total 938 1000 Balance 938 1000 Weight 57 kg General appearance: PRESENT: no acute distress, well-developed, well-nourished Head exam: PRESENT: atraumatic, normocephalic Eye exam: PRESENT: conjunctiva pink, EOMI, PERRLA. ABSENT: scleral icterus Ear exam: PRESENT: normal external ear exam Mouth exam: PRESENT: moist, tongue midline Neck exam: ABSENT: carotid bruit, JVD, lymphadenopathy, thyromegaly Respiratory exam: PRESENT: clear to auscultation ankur. ABSENT: rales, rhonchi, wheezes Cardiovascular exam: PRESENT: RRR. ABSENT: diastolic murmur, rubs, systolic murmur Pulses: PRESENT: normal dorsalis pedis pul Vascular exam: PRESENT: normal capillary refill GI/Abdominal exam: PRESENT: normal bowel sounds, soft. ABSENT: distended, gua rding, mass, organolmegaly, rebound, tenderness Rectal exam: PRESENT: deferred Extremities exam: PRESENT: full ROM. ABSENT: calf tenderness, clubbing, pedal edema Neurological exam: PRESENT: alert, awake, oriented to person, oriented to place, oriented to time, oriented to situation, CN II-XII grossly intact. ABSENT: maribell r sensory deficit Psychiatric exam: PRESENT: appropriate affect, normal mood. ABSENT: homicidal ideation, suicidal ideation Skin exam: PRESENT: dry, intact, warm. ABSENT: cyanosis, rash Results Laboratory Results: 03/15/20 06:25 03/15/20 06:25 03/14/20 03/14/20 03/14/20 17:10 17:10 17:10 WBC 4.0 RBC 3.67 L Hgb 12.7 Hct 35.8 L MCV 97 MCH 34.6 H MCHC 35.5 RDW 13.4 Plt Count 219 Seg Neutrophils % 53.2 Sodium 140.4 Potassium 3.4 L Chloride 104 Carbon Dioxide 28 Anion Gap 8 BUN 4 L Creatinine 0.73 Est GFR ( Amer) > 60 Glucose 116 H Calcium 9.4 Magnesium Total Bilirubin 2.3 H AST 122 H Alkaline Phosphatase 314 H Total Protein 9.4 H Albumin 4.1 Amylase Lipase 212.7 TSH Urine Color YELLOW Urine Appearance CLEAR Urine pH 6.0 Ur Specific [place] 1.003 Urine Protein NEGATIVE Urine Glucose (UA) NEGATIVE Urine Ketones NEGATIVE Urine Blood NEGATIVE Urine Nitrite NEGATIVE Ur Leukocyte Esterase TRACE H Urine WBC (Auto) 0 03/15/20 03/15/20 03/15/20 06:25 06:25 06:25 WBC 4.4 RBC 3.31 L Hgb 11.2 L Hct 32.5 L MCV 98 H MCH 33.7 H MCHC 34.4 RDW 13.3 Plt Count 190 Seg Neutrophils % Sodium 140.7 Potassium 3.4 L Chloride 106 Carbon Dioxide 28 Anion Gap 7 BUN 7 Creatinine 0.65 Est GFR ( Amer) > 60 Glucose 170 H Calcium 8.6 Magnesium 2.0 Total Bilirubin 1.7 H AST 120 H Alkaline Phosphatase 233 H Total Protein 7.6 Albumin 3.2 L Amylase 73 Lipase 316.9 H TSH 2.32 Urine Color Urine Appearance Urine pH Ur Specific [place] Urine Protein Urine Glucose (UA) Urine Ketones Urine Blood Urine Nitrite Ur Leukocyte Esterase Urine WBC (Auto) Impressions: Abdomen Ultrasound 03/14/20 16:57 IMPRESSION: Cholelithiasis without evidence of cholecystitis. Heterogeneous echotexture may represent cirrhotic change versus geographic hepatic steatosis. Assessment and Plan - Diagnosis (1) Choledocholithiasis Is this a current diagnosis for this admission?: Yes Plan: GI is consulted; plans for ERCP this afternoon. NPO Continue IVF Analgesics and antiemetics as needed. Patient is afebrile w/ nml WBCs; no indications for antibiotic therapy at this time. (2) Abnormal liver function Is this a current diagnosis for this admission?: Yes Plan: Secondary to #1 Slight improvement. Management as above. Continue IVF. Follow chemistries. (3) Intermittent right upper quadrant abdominal pain Is this a current diagnosis for this admission?: Yes Plan: Secondary to #1 Analgesics as needed. Management as above. (4) Jaundice Is this a current diagnosis for this admission?: Yes Plan: Secondary to #1-2 Management as above. (5) Hypertension Qualifiers: Hypertension type: essential hypertension Qualified Code(s): I10 - Essential (primary) hypertension Is this a current diagnosis for this admission?: Yes Plan: Currently NPO Provide for adequate pain management. IV hydralazine and lopressor prn BP control (6) Chronic dryness of both eyes Is this a current diagnosis for this admission?: Yes Plan: Refresh gtt - Time Time Spent with patient: 25-34 minutes Medications reviewed and adjusted accordingly: Yes Anticipated Discharge Disposition: Home, Self Care Anticipated Discharge Timeframe: within 48 hours
[2020-03-15] MEDS ORDERED: PROPOFOL INJ 200 MG/20 ML VIAL IV ONE (17:03)
[2020-03-15] MEDS ORDERED: FENTANYL CITRATE INJ/PF 100 MCG/2 ML AMPUL ONE (17:03)
[2020-03-15] MEDS ORDERED: DEXAMETHASONE SOD PHOSPHATE INJ 4 MG/1 ML VIAL ONE (17:03)
[2020-03-15] MEDS ORDERED: MIDAZOLAM 2 MG/2 ML INJ ONE (17:03)
[2020-03-15] MEDS ORDERED: ONDANSETRON HCL INJ/PF 4 MG/2 ML SDV ONE (17:03)
[2020-03-15] MEDS ORDERED: EPINEPHRINE INJ 1 MG/10 ML DISP.SYRIN ONE (17:52)
[2020-03-15] MEDS ORDERED: GLUCAGON,HUMAN RECOMB 1 MG INJ ONE (17:53)
[2020-03-15] MEDS ORDERED: CARBOXYMETHYLCELLULOSE SOD 0.5% 0.4 ML DROPERETTE OU PRN (18:00)
--- NOTE | 2020-03-15 19:08 | Operative Report ---
Operative Report DATE OF SURGERY: 03/15/20 Operative Report: Pre-op diagnosis: Recurrent abdominal pain, jaundice, gallstones Post-op diagnosis: 1. Common bile duct sludge 2. normal size common bile duct and pancreatic duct 3. Difficult procedure Surgery: ERCP with sphincterotomy and balloon sludge extraction Medications: As per anesthesia Tissue removed: None Procedure: After informed consent obtained from patient, patient was placed under general anesthesia. The ERCP endoscope was then inserted into the esophagus blindly and advanced into the stomach. The duodenum was entered and the ampulla was identified. It was difficult to keep the ampulla in good position and the procedure was mostly done in the long scope position. Using the triple-lumen sphincterotomy catheter the pancreatic duct was initially cannulated and a pancreatogram was obtained. The common bile duct was cannulated in the long position and a cholangiogram was obtained but it was difficult to freely cannulate. After multiple trials I was able to freely cannulate the common bile duct. A cholangiogram was obtained . A good sized sphincterotomy was then performed using the endocut mode. The catheter was removed over the guidewire before a 9-12 mm balloon catheter was inserted. The balloon was inflated to 12 mm in the proximal common bile duct and pulled down the duct. The duct was swept two more times. A balloon occlusion cholangiogram was normal. Patient tolerated procedure well. Findings Common bile duct: Small amount of sludge was extracted from the duct. Intrahepatic ducts: Normal Pancreatic duct: Appear normal Plan: Follow-up LFTs. Schedule CT of the abdomen due to the fullness and tenderness in the epigastrium. OPERATION: .
[2020-03-16 06:18] LABS: HEMATOCRIT 30.9 % (36.0-47.0); HEMOGLOBIN 10.6 g/dL (12.0-15.5); MEAN CORPUSCULAR HEMOGLOBIN 33.8 pg (27.0-33.4); MEAN CORPUSCULAR HGB CONC 34.5 g/dL (32.0-36.0); MEAN CORPUSCULAR VOLUME 98 fl (80-97); PLATELET COUNT 171 10^3/uL (150-450); RED BLOOD COUNT 3.14 10^6/uL (3.72-5.28); RED CELL DISTRIBUTION WIDTH 13.2 % (11.5-14.0); WHITE BLOOD COUNT 3.7 10^3/uL (4.0-10.5)
[2020-03-16 06:48] LABS: ALBUMIN 2.6 g/dL (3.5-5.0); ALKALINE PHOSPHATASE 214 U/L (38-126); ANION GAP 6 (5-19); ASPARTATE AMINO TRANSFERASE 104 U/L (14-36); BILIRUBIN,DIRECT 1.7 mg/dL (0.0-0.4); BILIRUBIN,TOTAL 2.3 mg/dL (0.2-1.3); BLOOD UREA NITROGEN 7 mg/dL (7-20); CALCIUM 8.1 mg/dL (8.4-10.2); CARBON DIOXIDE 27 mmol/L (22-30); CHLORIDE 104 mmol/L (98-107); GLUCOSE 251 mg/dL (75-110); POTASSIUM 3.3 mmol/L (3.6-5.0); TOTAL PROTEIN 6.6 g/dL (6.3-8.2)
[2020-03-16] MEDS: HEPARIN SOD (PORCINE) 5,000 UNIT/ML 1 ML VIAL SUBCUT SCH ×3 (06:49→22:26)
[2020-03-16] MEDS: DEXTROSE 5%-LACTATED RINGERS 1,000 ML IV PRN ×2 (06:56→22:30)
--- NOTE | 2020-03-16 07:20 | EKG REPORT ---
SEVERITY:- OTHERWISE NORMAL ECG - SINUS RHYTHM LOW VOLTAGE IN FRONTAL LEADS : Confirmed by: Candice Tomas 16-Mar-2020 07:19:29
--- NOTE | 2020-03-16 09:12 | RADIOLOGY REPORT (SQ) ---
EXAM DESCRIPTION: ENDO CATH/BILIARY DUCT; NO CHG FLUORO IMAGES COMPLETED DATE/TIME: 03/15/2020 7:19 pm REASON FOR STUDY: ERCP IN OR COMPARISON: None. FLUOROSCOPY TIME: 5.2 minutes. 9 images submitted to PACS. TECHNIQUE: Intra-operative fluoroscopic images of the abdomen were obtained in the endoscopy suite d uring an ERCP. NUMBER OF IMAGES: 9 LIMITATIONS: None. FINDINGS: Refer to the separate procedural report. IMPRESSION: IMAGE(S) OBTAINED DURING PROCEDURE. COMMENT: Quality ID 145: Final reports for procedures using fluoroscopy that document radiation exp osure indices, or exposure time and number of fluorographic images (if radiation exposure indices are not available) Please consult full operative report of the attending physician for description of the procedure. TECHNICAL DOCUMENTATION: JOB ID: [id number] 2010 [employer]- All Rights Reserved Reading location - IP/workstation name: [email or web address]
--- NOTE | 2020-03-16 09:12 | RADIOLOGY REPORT (SQ) ---
EXAM DESCRIPTION: ENDO CATH/BILIARY DUCT; NO CHG FLUORO IMAGES COMPLETED DATE/TIME: 03/15/2020 7:19 pm REASON FOR STUDY: ERCP IN OR COMPARISON: None. FLUOROSCOPY TIME: 5.2 minutes. 9 images submitted to PACS. TECHNIQUE: Intra-operative fluoroscopic images of the abdomen were obtained in the endoscopy suite d uring an ERCP. NUMBER OF IMAGES: 9 LIMITATIONS: None. FINDINGS: Refer to the separate procedural report. IMPRESSION: IMAGE(S) OBTAINED DURING PROCEDURE. COMMENT: Quality ID [id number]: Final reports for procedures using fluoroscopy that document radiation exp osure indices, or exposure time and number of fluorographic images (if radiation exposure indices are not available) Please consult full operative report of the attending physician for description of the procedure. TECHNICAL DOCUMENTATION: JOB ID: [id number] 2010 [employer]- All Rights Reserved Reading location - IP/workstation name: [email or web address]
[2020-03-16] MEDS: FAMOTIDINE INJ/PF 20 MG/2 ML SDV IV SCH ×2 (10:55→22:26)
--- NOTE | 2020-03-16 10:55 | RADIOLOGY REPORT (SQ) ---
EXAM DESCRIPTION: CT ABD/PELVIS WITH IV ORAL IMAGES COMPLETED DATE/TIME: 03/16/2020 10:18 am REASON FOR STUDY: Jaundice, abd pain and epigastric mass COMPARISON: None. TECHNIQUE: CT scan of the abdomen and pelvis performed using helical scanning technique with dynamic intravenous contrast injection. No oral contrast. Images reviewed with lung, soft tissue, and bone windows. Reconstructed coronal and sagittal MPR images reviewed. Delayed images for evaluation of the urinary system also acquired. All images stored on PACS. All CT scanners at this facility use dose modulation, iterative reconstruction, and/or weight based d osing when appropriate to reduce radiation dose to as low as reasonably achievable (ALARA). [facility]: Dose Right [facility]: CareDose [facility]: Dose Right [facility]: Teradose 4D [facility]: [employer] CONTRAST TYPE AND DOSE: Contrast/concentration: Isovue 350.00 mmol/ml; Total Contrast Delivered: 65. 0 ml; Total Saline Delivered: 65.0 ml RENAL FUNCTION: Creatinine 0.6 milligrams/deciliter RADIATION DOSE: CT Rad equipment meets quality standard of care and radiation dose reduction techniq ues were employed. CTDIvol: 3.8 - 3.8 mGy. DLP: 379 mGy-cm. LIMITATIONS: None. FINDINGS: LOWER CHEST: Atherosclerotic calcification of the coronary arteries LIVER: The nodular contour of the liver is suggestive of underlying cirrhosis. The portal veins are patent. There is no hepatic mass. SPLEEN: No splenomegaly or splenic mass. PANCREAS: Peripancreatic inflammation without associated pancreatic ductal dilatation, a peripancreat ic fluid collection or perfusion defect of the pancreatic parenchyma. GALLBLADDER: The gallbladder is either contracted or surgically absent. ADRENAL GLANDS: No adenopathy or mass. RIGHT KIDNEY AND URETER: No solid mass, hydronephrosis, nephrolithiasis, hydroureter or ureterolithia sis. LEFT KIDNEY AND URETER: No solid mass, hydronephrosis, nephrolithiasis, hydroureter or ureterolithias is. AORTA AND VESSELS: No aneurysm of the abdominal aorta. There are portosystemic collaterals in the up per abdomen. RETROPERITONEUM: No retroperitoneal adenopathy, hemorrhage or mass. BOWEL AND PERITONEAL CAVITY: There is a trace amount of fluid in the right perihepatic space. There is no bowel obstruction, bowel wall thickening or pericolonic/ perienteric inflammation. There is no mesenteric adenopathy or mass. There is no free intraperitoneal gas. APPENDIX: Unable to identify the appendix. There is no pericecal inflammation. PELVIS: Prominent parametrial vessels in the left adnexum. There is no abnormality of the uterus colt t is apparent on CT. The urinary bladder is distended and normal in appearance. ABDOMINAL WALL: No abdominal wall mass or hernia. BONES: Degenerative spondylosis and facet arthropathy of the lumbar spine with grade 1 anterolisthesi s of L3 relative to L4 and of L4 relative to L5. OTHER: No other finding. IMPRESSION: 1. Peripancreatic inflammation without associated pancreatic ductal dilatation, a peripa ncreatic fluid collection or perfusion defect of the pancreatic parenchyma. These findings are harmeet rning for an acute pancreatitis. 2. Cirrhosis with stigmata of portal hypertension (portosystemic collaterals and trace amount of asc ites). TECHNICAL DOCUMENTATION: JOB ID: [id number] Quality ID # [id number]: Final reports with documentation of one or more dose reduction techniques (e.g., Au tomated exposure control, adjustment of the mA and/or kV according to patient size, use of iterative reconstruction technique) 2010 [employer]- All Rights Reserved Reading location - IP/workstation name: [email or web address]
--- NOTE | 2020-03-16 20:15 | PDOC PROGRESS REPORT ---
Subjective Progress Note for:: 03/16/20 Subjective:: The patient is a 74 year old female with a past medical history significant for HTN and chronic dry eye who was admitted 03/14/20 for choledocholithiasis with plans for ERCP by Dr. Silva on 03/15/20. Patient was seen on morning rounds. She was found resting in bed, comfortably, on room air. She complains of abdominal discomfort, though decreased from yesterday. Also reports that she is hungry and hopes to be able to eat today. Tolerated p.o. contrast w/o increase in pain, nausea or vomiting. She denies fever, chills, chest pain, palpitations, dyspnea, orthopnea, and cough. She has no questions or concerns at this time. No concerns per nursing. Reason For Visit: INTERMITTENT RIGHT UPPER QUADRANT ABDOMINAL PAIN Physical Exam Vital Signs: Temp Pulse Resp BP Pulse Ox 98.5 F 53 L 17 129/70 H 100 03/16/20 11:38 03/16/20 15:00 03/16/20 11:38 03/16/20 11:38 03/16/20 11:38 Intake & Output 03/15/20 03/16/20 03/17/20 06:59 06:59 06:59 Intake Total 938 4540 3580 Output Total 10 Balance 938 4530 3580 Weight 57 kg 59.3 kg General appearance: PRESENT: no acute distress, cooperative, well-developed, well-nourished Head exam: PRESENT: atraumatic, normocephalic Eye exam: PRESENT: conjunctiva pink, EOMI, PERRLA. ABSENT: scleral icterus Mouth exam: PRESENT: moist, tongue midline Respiratory exam: PRESENT: clear to auscultation ankur, symmetrical, unlabored. ABSENT: rales, rhonchi, wheezes Cardiovascular exam: PRESENT: RRR, +S1, +S2. ABSENT: diastolic murmur, rubs, systolic murmur Vascular exam: PRESENT: normal capillary refill GI/Abdominal exam: PRESENT: normal bowel sounds, soft, tenderness. ABSENT: distended, guarding, mass, organolmegaly, rebound Rectal exam: PRESENT: deferred Extremities exam: PRESENT: full ROM. ABSENT: calf tenderness, clubbing, pedal edema Musculoskeletal exam: PRESENT: ambulatory Neurological exam: PRESENT: alert, awake, oriented to person, oriented to place, oriented to time, oriented to situation, CN II-XII grossly intact. ABSENT: motor sensory deficit Psychiatric exam: PRESENT: appropriate affect, normal mood. ABSENT: homicidal ideation, suicidal ideation Skin exam: PRESENT: dry, intact, warm. ABSENT: cyanosis, rash Results Laboratory Results: 03/16/20 05:46 03/16/20 05:46 03/16/20 03/16/20 05:46 05:46 WBC 3.7 L RBC 3.14 L Hgb 10.6 L Hct 30.9 L MCV 98 H MCH 33.8 H MCHC 34.5 RDW 13.2 Plt Count 171 Sodium 137.3 Potassium 3.3 L Chloride 104 Carbon Dioxide 27 Anion Gap 6 BUN 7 Creatinine 0.60 Est GFR ( Amer) > 60 Glucose 251 H Calcium 8.1 L Total Bilirubin 2.3 H AST 104 H Alkaline Phosphatase 214 H Total Protein 6.6 Albumin 2.6 L Impressions: Abdomen Ultrasound 03/14/20 16:57 IMPRESSION: Cholelithiasis without evidence of cholecystitis. Heterogeneous echotexture may represent cirrhotic change versus geographic hepatic steatosis. Catheter Placement 03/15/20 00:00 IMPRESSION: IMAGE(S) OBTAINED DURING PROCEDURE. Fluoroscopy 03/15/20 00:00 IMPRESSION: IMAGE(S) OBTAINED DURING PROCEDURE. Abdomen/Pelvis CT 03/16/20 00:00 IMPRESSION: 1. Peripancreatic inflammation without associated pancreatic ductal dilatation, a peripancreatic fluid collection or perfusion defect of the pancreatic parenchyma. These findings are concerning for an acute pancreatitis. 2. Cirrhosis with stigmata of portal hypertension (portosystemic collaterals and trace amount of ascites). Assessment and Plan - Diagnosis (1) Choledocholithiasis Is this a current diagnosis for this admission?: Yes Plan: GI is consulted; s/p ERCP by Dr. Silva w/ removal of gallbladder sludge. Has been advanced to clear liquids. Continue IVF Analgesics and antiemetics as needed. Patient is afebrile w/ nml WBCs; no indications for antibiotic therapy at this time. (2) Pancreatitis Qualifiers: Chronicity: acute Pancreatitis type: biliary Acute pancreatitis compli cation: no infection or necrosis Qualified Code(s): K85.10 - Biliary acute pancreatitis without necrosis or infection Is this a current diagnosis for this admission?: Yes Plan: Lipase slightly elevated to 316.9 CT ABD/Pelvis demonstrated peripancreatic inflammation without associated pancreatic ductal dilatation w/ fluid collection ore perfusion defect of the pancreatic parenchyma. Concerning for acute pancreatitis. Cirrhosis with stigmata of portal hypertension noted. Maintain clear liquid diet. IV fluids. Analgesics and antiemetics as needed. Follow-up chemistry and lipase. GI previously consulted. (3) Abnormal liver function Is this a current diagnosis for this admission?: Yes Plan: Secondary to #1 Slight improvement. Management as above. Continue IVF. Follow chemistries. (4) Intermittent right upper quadrant abdominal pain Is this a current diagnosis for this admission?: Yes Plan: Secondary to #1 & 2 Analgesics as needed. Management as above. (5) Jaundice Is this a current diagnosis for this admission?: Yes Plan: Resolved. Management as above. (6) Hypertension Qualifiers: Hypertension type: essential hypertension Qualified Code(s): I10 - Essential (primary) hypertension Is this a current diagnosis for this admission?: Yes Plan: Currently NPO Provide for adequate pain management. IV hydralazine and lopressor prn BP control (7) Chronic dryness of both eyes Is this a current diagnosis for this admission?: Yes Plan: Refresh gtt - Time Time Spent with patient: 25-34 minutes Medications reviewed and adjusted accordingly: Yes Anticipated Discharge Disposition: Home, Self Care Anticipated Discharge Timeframe: within 72 hours
[2020-03-17] MEDS: HEPARIN SOD (PORCINE) 5,000 UNIT/ML 1 ML VIAL SUBCUT SCH ×3 (05:31→21:31)
[2020-03-17 05:58] LABS: HEMATOCRIT 28.4 % (36.0-47.0); MEAN CORPUSCULAR HEMOGLOBIN 34.1 pg (27.0-33.4); MEAN CORPUSCULAR HGB CONC 35.1 g/dL (32.0-36.0); MEAN CORPUSCULAR VOLUME 97 fl (80-97); PLATELET COUNT 156 10^3/uL (150-450); RED BLOOD COUNT 2.93 10^6/uL (3.72-5.28); RED CELL DISTRIBUTION WIDTH 13.4 % (11.5-14.0); WHITE BLOOD COUNT 4.6 10^3/uL (4.0-10.5)
[2020-03-17 06:21] LABS: ANION GAP 5 (5-19); BLOOD UREA NITROGEN 6 mg/dL (7-20); CALCIUM 8.3 mg/dL (8.4-10.2); CARBON DIOXIDE 28 mmol/L (22-30); CHLORIDE 109 mmol/L (98-107); GLUCOSE 162 mg/dL (75-110); TRIGLYCERIDES 76 mg/dL (<150)
[2020-03-17] MEDS ORDERED: POTASSIUM CHLORIDE 10 MEQ TABLET.ER PO SCH (07:00)
[2020-03-17] MEDS ORDERED: GLUCAGON,HUMAN RECOMB 1 MG INJ SUBCUT PRN (08:24)
[2020-03-17] MEDS ORDERED: DEXTROSE 40% GEL 15 GM TUBE PO PRN ×2 (08:24)
[2020-03-17] MEDS ORDERED: DEXTROSE 50%-WATER 25 GM/50 ML DISP.SYRIN IV PRN ×2 (08:24)
[2020-03-17] MEDS: FAMOTIDINE INJ/PF 20 MG/2 ML SDV IV SCH ×2 (09:12→21:31)
[2020-03-17] MEDS: POTASSI CL 20 MEQ/50 ML RIDER 20 MEQ/50 ML RTUPB IV SCH ×2 (09:21→11:01)
[2020-03-17] MEDS: RINGERS SOLUTION,LACTATED 1,000 ML IV PRN ×2 (12:40→18:50)
--- NOTE | 2020-03-17 18:57 | PDOC PROGRESS REPORT ---
Subjective Progress Note for:: 03/17/20 Subjective:: The patient is a 74 year old female with a past medical history significant for HTN and chronic dry eye who was admitted 03/14/20 for choledocholithiasis with plans for ERCP by Dr. Silva on 03/15/20. Patient was seen on morning rounds. She was found sitting up to the edge of the bed, comfortably, on room air. She complains of mild abdominal discomfort, declines pain medications. She admits to slight nausea without emesis. Wants to eat. She denies fever, chills, chest pain, palpitations, dyspnea, orthopnea, and cough. She has no questions or concerns at this time. No concerns per nursing. Reason For Visit: INTERMITTENT RIGHT UPPER QUADRANT ABDOMINAL PAIN Physical Exam Vital Signs: Temp Pulse Resp BP Pulse Ox 97.9 F 58 L 20 168/76 H 100 03/17/20 16:00 03/17/20 16:00 03/17/20 16:00 03/17/20 16:00 03/17/20 16:00 Intake & Output 03/16/20 03/17/20 03/18/20 06:59 06:59 06:59 Intake Total 4540 4280 5 Output Total 10 Balance 4530 4280 2024 Weight 59.3 kg 59.4 kg General appearance: PRESENT: no acute distress, cooperative, well-developed, well-nourished Head exam: PRESENT: atraumatic, normocephalic Eye exam: PRESENT: conjunctiva pink, EOMI, PERRLA. ABSENT: scleral icterus Mouth exam: PRESENT: moist, tongue midline Respiratory exam: PRESENT: clear to auscultation ankur, symmetrical, unlabored. ABSENT: rales, rhonchi, wheezes Cardiovascular exam: PRESENT: RRR, +S1, +S2. ABSENT: diastolic murmur, rubs, systolic murmur Vascular exam: PRESENT: normal capillary refill GI/Abdominal exam: PRESENT: normal bowel sounds, soft, tenderness. ABSENT: distended, guarding, mass, organolmegaly, rebound Rectal exam: PRESENT: deferred Extremities exam: PRESENT: full ROM. ABSENT: calf tenderness, clubbing, pedal edema Musculoskeletal exam: PRESENT: ambulatory Neurological exam: PRESENT: alert, awake, oriented to person, oriented to place, oriented to time, oriented to situation, CN II-XII grossly intact. ABSENT: mot or sensory deficit Psychiatric exam: PRESENT: appropriate affect, normal mood. ABSENT: homicidal ideation, suicidal ideation Skin exam: PRESENT: dry, intact, warm. ABSENT: cyanosis, rash Results Laboratory Results: 03/17/20 05:22 03/17/20 05:22 03/17/20 03/17/20 05:22 05:22 WBC 4.6 RBC 2.93 L Hgb 10.0 L Hct 28.4 L MCV 97 MCH 34.1 H MCHC 35.1 RDW 13.4 Plt Count 156 Sodium 141.5 Potassium 3.0 L* Chloride 109 H Carbon Dioxide 28 Anion Gap 5 BUN 6 L Creatinine 0.62 Est GFR ( Amer) > 60 Glucose 162 H Calcium 8.3 L Triglycerides 76 Lipase 2299.2 H Impressions: Abdomen Ultrasound 03/14/20 16:57 IMPRESSION: Cholelithiasis without evidence of cholecystitis. Heterogeneous echotexture may represent cirrhotic change versus geographic hepatic steatosis. Catheter Placement 03/15/20 00:00 IMPRESSION: IMAGE(S) OBTAINED DURING PROCEDURE. Fluoroscopy 03/15/20 00:00 IMPRESSION: IMAGE(S) OBTAINED DURING PROCEDURE. Abdomen/Pelvis CT 03/16/20 00:00 IMPRESSION: 1. Peripancreatic inflammation without associated pancreatic ductal dilatation, a peripancreatic fluid collection or perfusion defect of the pancreatic parenchyma. These findings are concerning for an acute pancreatitis. 2. Cirrhosis with stigmata of portal hypertension (portosystemic collaterals and trace amount of ascites). Assessment and Plan - Diagnosis (1) Pancreatitis Qualifiers: Chronicity: acute Pancreatitis type: biliary Acute pancreatitis complication: no infection or necrosis Qualified Code(s): K85.10 - Biliary acute pancreatitis without necrosis or infection Is this a current diagnosis for this admission?: Yes Plan: Lipase 316.9-> 2299 (s/p ERCP) CT ABD/Pelvis demonstrated peripancreatic inflammation without associated pancreatic ductal dilatation w/ fluid collection ore perfusion defect of the pancreatic parenchyma. Concerning for acute pancreatitis. Cirrhosis with stigmata of portal hypertension noted. NPO w/ sips of water and ice chips IV fluids. Analgesics and antiemetics as needed. Follow-up chemistry and lipase. GI previously consulted. Patient is afebrile w/ nml WBCs; no indications for antibiotic therapy at this time. (2) Choledocholithiasis Is this a current diagnosis for this admission?: Yes Plan: GI is consulted; s/p ERCP by Dr. Shira diaz/ removal of gallbladder sludge. Analgesics and antiemetics as needed. (3) Abnormal liver function Is this a current diagnosis for this admission?: Yes Plan: Secondary to #1 Slight improvement. Management as above. Continue IVF. Follow chemistries. (4) Intermittent right upper quadrant abdominal pain Is this a current diagnosis for this admission?: Yes Plan: Secondary to #1 & 2 Analgesics as needed. Management as above. (5) Jaundice Is this a current diagnosis for this admission?: Yes Plan: Resolved. Management as above. (6) Hypertension Qualifiers: Hypertension type: essential hypertension Qualified Code(s): I10 - Essential (primary) hypertension Is this a current diagnosis for this admission?: Yes Plan: Currently NPO Provide for adequate pain management. IV hydralazine and lopressor prn BP control (7) Chronic dryness of both eyes Is this a current diagnosis for this admission?: Yes Plan: Refresh gtt (8) Hypokalemia Is this a current diagnosis for this admission?: Yes Plan: IV replacement today. Follow up chemistry. - Time Time Spent with patient: 25-34 minutes Medications reviewed and adjusted accordingly: Yes Anticipated Discharge Disposition: Home, Self Care Anticipated Discharge Timeframe: undetermined
[2020-03-18] MEDS: MORPHINE SULFATE 10 MG/ML INJ IV PRN (04:00)
[2020-03-18] MEDS: HEPARIN SOD (PORCINE) 5,000 UNIT/ML 1 ML VIAL SUBCUT SCH ×3 (05:14→21:16)
[2020-03-18 05:52] LABS: HEMATOCRIT 32.2 % (36.0-47.0); HEMOGLOBIN 11.4 g/dL (12.0-15.5); MEAN CORPUSCULAR HEMOGLOBIN 34.3 pg (27.0-33.4); MEAN CORPUSCULAR HGB CONC 35.5 g/dL (32.0-36.0); MEAN CORPUSCULAR VOLUME 97 fl (80-97); PLATELET COUNT 193 10^3/uL (150-450); RED BLOOD COUNT 3.34 10^6/uL (3.72-5.28); RED CELL DISTRIBUTION WIDTH 13.3 % (11.5-14.0); WHITE BLOOD COUNT 4.5 10^3/uL (4.0-10.5)
[2020-03-18 06:18] LABS: ANION GAP 9 (5-19); BLOOD UREA NITROGEN 6 mg/dL (7-20); CALCIUM 8.9 mg/dL (8.4-10.2); CARBON DIOXIDE 29 mmol/L (22-30); CHLORIDE 103 mmol/L (98-107); GLUCOSE 90 mg/dL (75-110); POTASSIUM 3.1 mmol/L (3.6-5.0)
[2020-03-18] MEDS: RINGERS SOLUTION,LACTATED 1,000 ML IV PRN ×2 (08:22→15:56)
[2020-03-18] MEDS: FAMOTIDINE INJ/PF 20 MG/2 ML SDV IV SCH (09:18)
[2020-03-18] MEDS ORDERED: POTASSI CL 20 MEQ/D5-1/2NS 1L 1,000 ML IV PRN (10:45)
[2020-03-18] MEDS ORDERED: POTASSIUM CHLORIDE 20 MEQ PACKET PO SCH (10:45)
[2020-03-18] MEDS: POTASSIUM CHLORIDE 20 MEQ/50 ML RTU IV SCH ×2 (11:30→13:27)
[2020-03-18] MEDS ORDERED: POTASSI CL 20 MEQ/50 ML RIDER 20 MEQ/50 ML RTUPB IV ONE (12:00)
--- NOTE | 2020-03-18 20:16 | PDOC PROGRESS REPORT ---
Subjective Subjective:: Per previous physician: "The patient is a 74 year old female with a past medical history significant for HTN and chronic dry eye who was admitted 03/14/20 for choledocholithiasis with plans for ERCP by Dr. Silva on 03/15/20. Patient was seen on morning rounds. She was found sitting up to the edge of the bed, comfortably, on room air. She complains of mild abdominal discomfort, declines pain medications. She admits to slight nausea without emesis. Wants to eat. She denies fever, chills, chest pain, palpitations, dyspnea, orthopnea, and cough. She has no questions or concerns at this time. No concerns per nursing." 03/18/2020 Patient potassium is low today and will be repleting this. Her lipase is down to 650 which is a significant improvement from previous value. She is asking to go home and I told her if she could tolerate a diet and if we can advance this over the next 24 hours she could indeed go home. She became tearful and I tried to explain this to her again, the tearfulness resolved and then as we talked tomorrow she became tearful again. Per nursing, this is a common occurrence during normal conversation for the patient. Possible discharge tomorrow Reason For Visit: INTERMITTENT RIGHT UPPER QUADRANT ABDOMINAL PAIN Physical Exam Vital Signs: Temp Pulse Resp BP Pulse Ox 98.9 F 62 16 150/73 H 100 03/18/20 14:59 03/18/20 14:59 03/18/20 14:59 03/18/20 14:59 03/18/20 14:59 Intake & Output 03/17/20 03/18/20 03/19/20 06:59 06:59 06:59 Intake Total 4280 3025 1837 Output Total 800 Balance 4280 3025 1037 Weight 59.4 kg 58.2 kg General appearance: PRESENT: no acute distress, well-developed, well-nourished Head exam: PRESENT: atraumatic, normocephalic Eye exam: PRESENT: conjunctiva pink Mouth exam: PRESENT: moist Respiratory exam: PRESENT: clear to auscultation ankur. ABSENT: rales, rhonchi, wheezes Cardiovascular exam: PRESENT: RRR. ABSENT: diastolic murmur, rubs, systolic murmur GI/Abdominal exam: PRESENT: normal bowel sounds, soft, tenderness - Minimal in right upper quadrant. ABSENT: distended, guarding, mass, organolmegaly, rebound Neurological exam: PRESENT: alert, awake, oriented to person, oriented to place, oriented to time, oriented to situation Psychiatric exam: PRESENT: appropriate affect, normal mood Skin exam: PRESENT: dry, intact, warm Results Laboratory Results: 03/18/20 05:14 03/18/20 05:14 03/18/20 03/18/20 05:14 05:14 WBC 4.5 RBC 3.34 L Hgb 11.4 L Hct 32.2 L MCV 97 MCH 34.3 H MCHC 35.5 RDW 13.3 Plt Count 193 Sodium 141.0 Potassium 3.1 L Chloride 103 Carbon Dioxide 29 Anion Gap 9 BUN 6 L Creatinine 0.63 Est GFR ( Amer) > 60 Glucose 90 Calcium 8.9 Magnesium 1.7 Lipase 653.2 H Impressions: Abdomen Ultrasound 03/14/20 16:57 IMPRESSION: Cholelithiasis without evidence of cholecystitis. Heterogeneous echotexture may represent cirrhotic change versus geographic hepatic steatosis. Catheter Placement 03/15/20 00:00 IMPRESSION: IMAGE(S) OBTAINED DURING PROCEDURE. Fluoroscopy 03/15/20 00:00 IMPRESSION: IMAGE(S) OBTAINED DURING PROCEDURE. Abdomen/Pelvis CT 03/16/20 00:00 IMPRESSION: 1. Peripancreatic inflammation without associated pancreatic ductal dilatation, a peripancreatic fluid collection or perfusion defect of the pancreatic parenchyma. These findings are concerning for an acute pancreatitis. 2. Cirrhosis with stigmata of portal hypertension (portosystemic collaterals and trace amount of ascites). Assessment and Plan - Diagnosis (1) Pancreatitis Qualifiers: Chronicity: acute Pancreatitis type: biliary Acute pancreatitis complication: no infection or necrosis Qualified Code(s): K85.10 - Biliary acute pancreatitis without necrosis or infection Is this a current diagnosis for this admission?: Yes Plan: Per Admitting Physician: "Lipase 316.9-> 2299 (s/p ERCP) CT ABD/Pelvis demonstrated peripancreatic inflammation without associated pa ncreatic ductal dilatation w/ fluid collection ore perfusion defect of the pancreatic parenchyma. Concerning for acute pancreatitis. Cirrhosis with stigmata of portal hypertension noted. NPO w/ sips of water and ice chips IV fluids. Analgesics and antiemetics as needed. Follow-up chemistry and lipase. GI previously consulted. Patient is afebrile w/ nml WBCs; no indications for antibiotic therapy at this time." 03/18/2020 Advance diet to clear liquids, advance beyond that if she tolerates this Pain meds available Needs follow-up with GI (2) Choledocholithiasis Is this a current diagnosis for this admission?: Yes Plan: GI is consulted; s/p ERCP by Dr. Silva w/ removal of gallbladder sludge. No further procedures planned Analgesics and antiemetics as needed. (3) Abnormal liver function Is this a current diagnosis for this admission?: Yes Plan: Resolving (4) Hypertension Qualifiers: Hypertension type: essential hypertension Qualified Code(s): I10 - Essential (primary) hypertension Is this a current diagnosis for this admission?: Yes Plan: Controlled (5) Hypokalemia Is this a current diagnosis for this admission?: Yes Plan: Persistently low, repleting (6) Intermittent right upper quadrant abdominal pain Is this a current diagnosis for this admission?: Yes (7) Jaundice Is this a current diagnosis for this admission?: Yes Plan: Resolved. Management as above. - Time Time Spent with patient: 15-24 minutes Medications reviewed and adjusted accordingly: Yes Anticipated Discharge Disposition: Home, Self Care Anticipated Discharge Timeframe: within 48 hours - Inpatient Certification Based on my medical assessment, after consideration of the patient's comorbidities, presenting symptoms, or acuity I expect that the services needed warrant INPATIENT care.: Yes I certify that my determination is in accordance with my understanding of Medicare's requirements for reasonable and necessary INPATIENT services [42 CFR 412.3e].: Yes Medical Necessity: Significant Comorbidiites Make Outpatient Treatment Too Risky, Need Close Monitoring Due to Risk of Patient Decompensation, Need for Pain Control, Risk of Complication if Not Cared For in Hospital, Risk of Diagnosis Which Will Require Inpatient Eval/Care/Monitoring
[2020-03-19] MEDS: HEPARIN SOD (PORCINE) 5,000 UNIT/ML 1 ML VIAL SUBCUT SCH ×2 (05:56→13:30)
--- NOTE | 2020-03-19 14:28 | PDOC DISCHARGE SUMMARY ---
Impression - Admit/DC Date/PCP Admission Date/Primary Care Provider: 03/14/20 20:29 STEFAN JORDAN MD Discharge Date: 03/19/20 - Discharge Diagnosis (1) Pancreatitis Is this a current diagnosis for this admission?: Yes (2) Choledocholithiasis Is this a current diagnosis for this admission?: Yes (3) Abnormal liver function Is this a current diagnosis for this admission?: Yes (4) Hypertension Is this a current diagnosis for this admission?: Yes (5) Hypokalemia Is this a current diagnosis for this admission?: Yes (6) Intermittent right upper quadrant abdominal pain Is this a current diagnosis for this admission?: Yes (7) Jaundice Is this a current diagnosis for this admission?: Yes - Additional Information Resuscitation Status: Full Code Discharge Diet: As Tolerated, Other (Comments) - low fat diet Discharge Activity: Activity As Tolerated, Balance Activity w/Rest Referrals: STEFAN JORDAN MD [Primary Care Provider] - 03/26/20 2:00 pm ( ) Prescriptions: Carboxymethylcellulose Sodium [Refresh Plus 0.5% Oph Soln 0.4 ml Droperette] 1 drop OU QIDP PRN #1 droperette PRN Reason: Home Medications: Multivit-Minerals/Folic Acid [Women's Multivitamin Gummies] 200 mcg PO DAILY 03/14/20 Ondansetron [Zofran Odt 4 mg Tablet] 4 mg PO Q4HP PRN 03/14/20 Valsartan [Diovan 80 mg Tablet] 80 mg PO QPM 03/14/20 Carboxymethylcellulose Sodium [Refresh Plus 0.5% Oph Soln 0.4 ml Droperette] 1 drop OU QIDP PRN #1 droperette 03/19/20 History of Present Illiness History of Present Illness: Per Admitting Physician: ""The patient is a 74 year old female with a past medical history significant for HTN and chronic dry eye who was admitted 03/14/20 for choledocholithiasis with plans for ERCP by Dr. Silva on 03/15/20. Patient was seen on morning rounds. She was found sitting up to the edge of the bed, comfortably, on room air. She complains of mild abdominal discomfort, declines pain medications. She admits to slight nausea without emesis. Wants to eat. She denies fever, chills, chest pain, palpitations, dyspnea, orthopnea, and cough. She has no questions or concerns at this time. No concerns per nursing."" Hospital Course Hospital Course: Per previous physician: "The patient is a 74 year old female with a past medical history significant for HTN and chronic dry eye who was admitted 03/14/20 for choledocholithiasis with plans for ERCP by Dr. Silva on 03/15/20. Patient was seen on morning rounds. She was found sitting up to the edge of the bed, comfortably, on room air. She complains of mild abdominal discomfort, declines pain medications. She admits to slight nausea without emesis. Wants to eat. She denies fever, chills, chest pain, palpitations, dyspnea, orthopnea, and cough. She has no questions or concerns at this time. No concerns per nursing." 03/18/2020 Patient potassium is low today and will be repleting this. Her lipase is down to 650 which is a significant improvement from previous value. She is asking to go home and I told her if she could tolerate a diet and if we can advance this over the next 24 hours she could indeed go home. She became tearful and I tried to explain this to her again, the tearfulness resolved and then as we talked tomorrow she became tearful again. Per nursing, this is a common occurrence during normal conversation for the patient. Possible discharge tomorrow On day of discharge, lipase significantly improved and abdominal pain nearly resolved, patient not requiring any narcotics and does not want these at discharge. Diet was advanced gradually and patient tolerated meals very well eating most or all of the food she was given. She did not have any nausea or vomiting or significant abdominal pain. I had a discussion with the patient and also with her daughter who was on speaker phone. I answered many of their questions and encouraged him to follow-up with the patient's PCP and GI physician within 1 week. They agreed with the plan and would like to be discharged home. (1) Pancreatitis Qualifiers: Chronicity: acute Pancreatitis type: biliary Acute pancreatitis complication: no infection or necrosis Qualified Code(s): K85.10 - Biliary acute pancreatitis without necrosis or infection Is this a current diagnosis for this admission?: Yes Plan: Per Admitting Physician: "Lipase 316.9-> 2299 (s/p ERCP) CT ABD/Pelvis demonstrated peripancreatic inflammation without associated pancreatic ductal dilatation w/ fluid collection ore perfusion defect of the pancreatic parenchyma. Concerning for acute pancreatitis. Cirrhosis with stigmata of portal hypertension noted. NPO w/ sips of water and ice chips IV fluids. Analgesics and antiemetics as needed. Follow-up chemistry and lipase. GI previously consulted. Patient is afebrile w/ nml WBCs; no indications for antibiotic therapy at this time." 03/18/2020 Advance diet to clear liquids, advance beyond that if she tolerates this Pain meds available Needs follow-up with GI (2) Choledocholithiasis Is this a current diagnosis for this admission?: Yes Plan: GI is consulted; s/p ERCP by Dr. Silva w/ removal of gallbladder sludge. No further procedures planned Analgesics and antiemetics as needed. (3) Abnormal liver function Is this a current diagnosis for this admission?: Yes Plan: Resolving (4) Hypertension Qualifiers: Hypertension type: essential hypertension Qualified Code(s): I10 - Essential (primary) hypertension Is this a current diagnosis for this admission?: Yes Plan: Controlled, restarted ARB (5) Hypokalemia Is this a current diagnosis for this admission?: Yes Plan: Persistently low, repleted (6) Intermittent right upper quadrant abdominal pain Is this a current diagnosis for this admission?: Yes (7) Jaundice Is this a current diagnosis for this admission?: Yes Plan: Resolved. Management as above. Physical Exam Vital Signs: Temp Pulse Resp BP Pulse Ox 99.0 F 64 19 169/72 H 100 03/19/20 11:52 03/19/20 11:52 03/19/20 11:52 03/19/20 11:52 03/19/20 11:52 Intake & Output 03/18/20 03/19/20 03/20/20 06:59 06:59 06:59 Intake Total 3025 2037 Output Total 800 Balance 3025 1237 Weight 58.2 kg 58.3 kg Exam: General appearance: PRESENT: no acute distress, well-developed, well-nourished, states she feels well and would like to go home Head exam: PRESENT: atraumatic, normocephalic Eye exam: PRESENT: conjunctiva pink Mouth exam: PRESENT: moist Respiratory exam: PRESENT: clear to auscultation ankur. ABSENT: rales, rhonchi, wheezes Cardiovascular exam: PRESENT: RRR. ABSENT: diastolic murmur, rubs, systolic murmur GI/Abdominal exam: PRESENT: normal bowel sounds, soft, tenderness - Minimal in right upper quadrant. ABSENT: distended, guarding, mass, organolmegaly, rebound Neurological exam: PRESENT: alert, awake, oriented to person, oriented to place, oriented to time, oriented to situation Psychiatric exam: PRESENT: appropriate affect, normal mood Skin exam: PRESENT: dry, intact, warm Results Laboratory Results: WBC 4.5 10^3/uL (4.0-10.5) 03/18/20 05:14 RBC 3.34 10^6/uL (3.72-5.28) L 03/18/20 05:14 Hgb 11.4 g/dL (12.0-15.5) L 03/18/20 05:14 Hct 32.2 % (36.0-47.0) L 03/18/20 05:14 MCV 97 fl (80-97) 03/18/20 05:14 MCH 34.3 pg (27.0-33.4) H 03/18/20 05:14 MCHC 35.5 g/dL (32.0-36.0) 03/18/20 05:14 RDW 13.3 % (11.5-14.0) 03/18/20 05:14 Plt Count 193 10^3/uL (150-450) 03/18/20 05:14 Lymph % (Auto) 29.3 % (13-45) 03/14/20 17:10 [place] % (Auto) 11.6 % (3-13) 03/14/20 17:10 Eos % (Auto) 4.5 % (0-6) 03/14/20 17:10 Baso % (Auto) 1.4 % (0-2) 03/14/20 17:10 Absolute Neuts (auto) 2.2 10^3/uL (1.7-8.2) 03/14/20 17:10 Absolute Lymphs (auto) 1.2 10^3/uL (0.5-4.7) 03/14/20 17:10 Absolute Monos (auto) 0.5 10^3/uL (0.1-1.4) 03/14/20 17:10 Absolute Eos (auto) 0.2 10^3/uL (0.0-0.6) 03/14/20 17:10 Absolute Basos (auto) 0.1 10^3/uL (0.0-0.2) 03/14/20 17:10 Seg Neutrophils % 53.2 % (42-78) 03/14/20 17:10 PT 13.8 SEC (11.4-15.4) 03/14/20 17:15 INR 1.04 03/14/20 17:15 APTT 30.3 SEC (23.5-35.8) 03/14/20 17:15 Sodium 141.0 mmol/L (137-145) 03/18/20 05:14 Potassium 3.1 mmol/L (3.6-5.0) L 03/18/20 05:14 Chloride 103 mmol/L (98-107) 03/18/20 05:14 Carbon Dioxide 29 mmol/L (22-30) 03/18/20 05:14 Anion Gap 9 (5-19) 03/18/20 05:14 BUN 6 mg/dL (7-20) L 03/18/20 05:14 Creatinine 0.63 mg/dL (0.52-1.25) 03/18/20 05:14 Est GFR ( Amer) > 60 (>60) 03/18/20 05:14 Est GFR (MDRD) Non-Af > 60 (>60) 03/18/20 05:14 Glucose 90 mg/dL (75-110) 03/18/20 05:14 POC Glucose 83 mg/dL (70-110) 03/18/20 06:43 Calcium 8.9 mg/dL (8.4-10.2) 03/18/20 05:14 Magnesium 1.7 mg/dL (1.6-2.3) 03/18/20 05:14 Total Bilirubin 2.3 mg/dL (0.2-1.3) H 03/16/20 05:46 Direct Bilirubin 1.7 mg/dL (0.0-0.4) H 03/16/20 05:46 Neonat Total Bilirubin Not Reportable 03/16/20 05:46 Neonat Direct Bilirubin Not Reportable 03/16/20 05:46 Neonat Indirect Bili Not Reportable 03/16/20 05:46 AST 104 U/L (14-36) H 03/16/20 05:46 ALT 38 U/L (<35) H 03/16/20 05:46 Alkaline Phosphatase 214 U/L (38-126) H 03/16/20 05:46 Total Protein 6.6 g/dL (6.3-8.2) 03/16/20 05:46 Albumin 2.6 g/dL (3.5-5.0) L 03/16/20 05:46 Triglycerides 76 mg/dL (<150) 03/17/20 05:22 Amylase 73 U/L (30-110) 03/15/20 06:25 Lipase 389.3 U/L (23-300) H 03/19/20 09:20 TSH 2.32 uIU/mL (0.47-4.68) 03/15/20 06:25 Urine Color YELLOW 03/14/20 17:10 Urine Appearance CLEAR 03/14/20 17:10 Urine pH 6.0 (5.0-9.0) 03/14/20 17:10 Ur Specific [place] 1.003 03/14/20 17:10 Urine Protein NEGATIVE mg/dL (NEGATIVE) 03/14/20 17:10 Urine Glucose (UA) NEGATIVE mg/dL (NEGATIVE) 03/14/20 17:10 Urine Ketones NEGATIVE mg/dL (NEGATIVE) 03/14/20 17:10 Urine Blood NEGATIVE (NEGATIVE) 03/14/20 17:10 Urine Nitrite NEGATIVE (NEGATIVE) 03/14/20 17:10 Urine Bilirubin NEGATIVE (NEGATIVE) 03/14/20 17:10 Urine Urobilinogen NEGATIVE mg/dL (<2.0) 03/14/20 17:10 Ur Leukocyte Esterase TRACE (NEGATIVE) H 03/14/20 17:10 Urine WBC (Auto) 0 /HPF 03/14/20 17:10 Squamous Epi Cells Auto 2 /HPF 03/14/20 17:10 Urine Mucus (Auto) RARE /LPF 03/14/20 17:10 Urine Ascorbic Acid NEGATIVE (NEGATIVE) 03/14/20 17:10 SARS-CoV-2 (PCR) NEGATIVE (NEGATIVE) 03/14/20 20:31 Impressions: Abdomen Ultrasound 09/16/20 16:57 IMPRESSION: Cholelithiasis without evidence of cholecystitis. Heterogeneous echotexture may represent cirrhotic change versus geographic hepatic steatosis. Catheter Placement 03/15/20 00:00 IMPRESSION: IMAGE(S) OBTAINED DURING PROCEDURE. Fluoroscopy 03/15/20 00:00 IMPRESSION: IMAGE(S) OBTAINED DURING PROCEDURE. Abdomen/Pelvis CT 03/16/20 00:00 IMPRESSION: 1. Peripancreatic inflammation without associated pancreatic ductal dilatation, a peripancreatic fluid collection or perfusion defect of the pancreatic parenchyma. These findings are concerning for an acute pancreatitis. 2. Cirrhosis with stigmata of portal hypertension (portosystemic collaterals and trace amount of ascites). Plan Plan of Treatment: Follow-up with PCP Follow-up with GI Low-fat diet Time Spent: Greater than 30 Minutes Stroke Is this a Stroke Patient?: No Acute Heart Failure Is this a Heart Failure Patient?: No
[2020-03-19 14:38] VITALS: BP 143/77
== END 2020-03-19 15:52 | disposition home or self-care (01) | DRG 444 ==
LOC: ER 16:01 → EH 20:29 → 5 03-15 00:47
PROVIDERS: ADMIT Emergency Medicine; ATTEND Internal Medicine
PROC: 0F798ZZ Dilation of Common Bile Duct, Via Natural or Artificial Opening Endoscopic (ICD-10-PCS; principal; 2020-03-15 18:00)
DX: K80.50 Calculus of bile duct without cholangitis or cholecystitis without obstruction (principal); K85.10 Biliary acute pancreatitis without necrosis or infection; R94.5 Abnormal results of liver function studies; I10 Essential (primary) hypertension; E87.6 Hypokalemia; R10.11 Right upper quadrant pain; H04.129 Dry eye syndrome of unspecified lacrimal gland; Z60.2 Problems related to living alone; Z03.818 Encounter for observation for suspected exposure to other biological agents ruled out; Z79.899 Other long term (current) drug therapy; Z91.040 Latex allergy status; Z87.891 Personal history of nicotine dependence
CPT/HCPCS: 36415; 43264; 732; 74177; 74328; 76705; 80048; 80053; 81001; 82150; 82962; 83690; 83735; 84443; 84478; 85025; 85027; 85610; 85730; 87635; 93005; 93010; 99285; C9803; J0171; J1100; J1610; J1644; J2250; J2270; J2405; J2704; J3010; J3480; J7120; J7121; S0028